=== PATIENT | female | born 1990 | race Caucasian/White ===

== ENCOUNTER 2021-02-01 01:25 | Inpatient (IN) | payer BC ==
--- NOTE | 2021-02-01 05:37 | Emergency Department Report ---
<GOLDEN GARZA - Last Filed: 02/01/21 05:38> ED Palpitations HPI - General Chief Complaint: Arrhythmia/Palpitations Stated Complaint: HEART MONITOR Time Seen by Provider: 02/01/21 05:05 Source: patient Mode of arrival: Ambulatory Limitations: No Limitations - History of Present Illness Initial Comments: Patient is a 30-year-old female who is presenting with need for cardiology consult. Patient has had a Holter monitor on for the last 2 to 3 weeks. Is placed secondary to palpitations and was found that she was in a junctional rhythm. Patient was alerted to come to the emergency department today because she was having episodes of 4+ second pauses on her rhythm strip. Patient states that those times she was feeling faint and near syncopal. She denies chest pain shortness of breath cough cold congestion fevers chills nausea vomiting at this time. Patient's carbon paste mixer operator is Dr. Gabriela Coppola - Related Data Allergies Allergy/AdvReac Type Severity Reaction Status Date / Time Sulfa (Sulfonamide Allergy Hives Verified 02/01/21 02:07 Antibiotics) ED Review of Systems Comment: All other systems reviewed and negative ED Past Medical Hx - Past Medical History Previous Medical History?: Yes Additional medical history: SVT - Surgical History Past Surgical History?: Yes Additional Surgical History: Cardiac ABLATION - Social History Smoking Status: Never Smoker Substance Use Type: None ED Physical Exam - General Limitations: No Limitations General appearance: alert, in no apparent distress - Head Head exam: Present: atraumatic, normocephalic - Eye Eye exam: Present: normal appearance - ENT ENT exam: Present: mucous membranes moist - Neck Neck exam: Present: normal inspection - Respiratory Respiratory exam: Present: normal lung sounds bilaterally. Absent: respiratory distress, wheezes, rales, rhonchi - Cardiovascular Cardiovascular Exam: Present: irregular rhythm. Absent: systolic murmur, diastolic murmur, rubs, gallop - GI/Abdominal GI/Abdominal exam: Present: soft, normal bowel sounds. Absent: distended, tenderness, guarding, rebound - Extremities Exam Extremities exam: Present: normal inspection - Back Exam Back exam: Present: normal inspection - Neurological Exam Neurological exam: Present: alert, oriented X3 - Psychiatric Psychiatric exam: Present: normal affect, normal mood - Skin Skin exam: Present: warm, dry, intact, normal color. Absent: rash ED Medical Decision Making - Radiology Data ` EKG shows a sinus bradycardia at times and a junctional rhythm at other times. Possible PACs. [place] is normal intervals normal. ED Disposition Clinical Impression: Palpitations, Abnormal Holter monitor finding, Junctional bradycardia Disposition: - OP ADMIT IP TO THIS HOSP Condition: Fair <JOHANNA ALEMAN - Last Filed: 02/01/21 07:26> ED Review of Systems ROS: Stated complaint: HEART MONITOR Other details as noted in HPI ED Course Vital Signs 02/01/21 01:57 Temperature 98.5 F Pulse Rate 51 L Respiratory 18 Rate Blood Pressure 117/65 O2 Sat by Pulse 99 Oximetry - Consultations Consultation #1: 02/01/21 07:10 I spoke with the carbon paste mixer operator on-call for [facility], Dr. Pena. Since the patient had a 4+ pause on the Holter monitor while she was awake, he recommends admission to the hospital with cardiology consultation. ED Medical Decision Making - Lab Data Result diagrams: 02/01/21 05:56 02/01/21 05:56 - Medical Decision Making Case signed out to me by overnight physician. Labs are unremarkable including CBC, metabolic panel, UDS and patient is not . Cardiology contacted and consulted. Accepted for admission by the hospitalist service and Dr. Mabry. Critical Care Time: No Critical care attestation.: If time is entered above; I have spent that time in minutes in the direct care of this critically ill patient, excluding procedure time. ED Disposition Is pt being admited?: Yes Time of Disposition: 07:25
[2021-02-01 06:38] LABS: Hematocrit 34.8 % (30.3-42.9); Hemoglobin 11.8 gm/dl (10.1-14.3); Mean Corpuscular HGB Conc 34 % (30-34); Mean Corpuscular Volume 87 fl (79-97); Platelet Count 201 K/mm3 (140-440); Red Blood Count 4.03 M/mm3 (3.65-5.03); Red Cell Distribution Width 14.2 % (13.2-15.2)
[2021-02-01 06:52] LABS: Blood Urea Nitrogen 17 mg/dL (7-17); Calcium 9.4 mg/dL (8.4-10.2); Hemolysis Index 1
[2021-02-01 06:55] LABS: BUN/Creatinine Ratio 28
[2021-02-01 07:06] LABS: Amphetamine Screen,Urine Negative; Benzodiazepines Screen,Urine Negative; Cannabinoid Screen,Urine Negative; Cocaine Screen,Urine Negative; Methadone Screen,Urine Negative; Opiate Screen,Urine Negative
--- NOTE | 2021-02-01 08:02 | XRay Report ---
CHEST 1 VIEW INDICATION / CLINICAL INFORMATION: palpitations. FINDINGS: SUPPORT DEVICES: None. HEART / MEDIASTINUM: No significant abnormality. LUNGS / PLEURA: No significant pulmonary or pleural abnormality. No pneumothorax. ADDITIONAL FINDINGS: No significant additional findings. IMPRESSION: 1. No acute findings. Signer Name: Rivas Gimenez MD Signed: 02/01/2021 7:57 AM Workstation Name: [id number]
[2021-02-01] MEDS ORDERED: NITROGLYCERIN 0.4 MG TAB SUBL SL PRN (10:40)
[2021-02-01] MEDS ORDERED: traMADol 50 MG TAB PO PRN (10:40)
[2021-02-01] MEDS ORDERED: ACETAMINOPHEN 325 MG TAB PO PRN (10:40)
[2021-02-01] MEDS ORDERED: MORPHINE 4 MG/1 ML INJ IV PRN (10:40)
[2021-02-01] MEDS ORDERED: hydrALAZINE 20 MG/1 ML INJ IV PRN (10:45)
--- NOTE | 2021-02-01 10:50 | History and Physical Report ---
History of Present Illness Date of examination: 02/01/21 Date of admission: 02/01/21 08:19 Chief complaint: Arrhythmia 4-second pause History of present illness: 30-year-old female with past medical history of SVT was brought to the hospital because of arrhythmia and 4-second pause. Patient has had a Holter monitor on for the last 2 to 3 weeks. Is placed secondary to palpitations and was found that she was in a junctional rhythm. Patient was alerted to come to the emergency department today because she was having episodes of 4+ second pauses on her rhythm strip. Patient states that those times she was feeling faint and near syncopal. She denies chest pain shortness of breath cough cold congestion fevers chills nausea vomiting at this time. Past History Past Medical History: other Medications and Allergies Allergies Allergy/AdvReac Type Severity Reaction Status Date / Time Sulfa (Sulfonamide Allergy Hives Verified 02/01/21 02:07 Antibiotics) Review of Systems Cardiovascular: palpitations Exam - Constitutional Vitals: Temp Pulse Resp BP Pulse Ox 98.5 F 50 L 16 102/56 97 02/01/21 01:57 02/01/21 10:08 02/01/21 10:08 02/01/21 10:08 02/01/21 10:08 General appearance: Present: no acute distress, well-nourished - EENT Eyes: Present: PERRL ENT: hearing intact, clear oral mucosa - Neck Neck: Present: supple, normal ROM - Respiratory Respiratory effort: normal Respiratory: bilateral: diminished - Cardiovascular Heart Sounds: Present: S1 & S2. Absent: rub, click - Extremities Extremities: pulses symmetrical, No edema Peripheral Pulses: within normal limits - Abdominal General gastrointestinal: Present: soft, non-tender, non-distended, normal bowel sounds Female genitourinary: Present: normal - Integumentary Integumentary: Present: clear, warm, dry - Musculoskeletal Musculoskeletal: gait normal, strength equal bilaterally - Psychiatric Psychiatric: appropriate mood/affect, intact judgment & insight - Neurologic Neurologic: CNII-XII intact, moves all extremities Results - Labs CBC & Chem 7: 02/01/21 05:56 02/01/21 05:56 Labs: Laboratory Last Values WBC 4.2 K/mm3 (4.5-11.0) L 02/01/21 05:56 RBC 4.03 M/mm3 (3.65-5.03) 02/01/21 05:56 Hgb 11.8 gm/dl (10.1-14.3) 02/01/21 05:56 Hct 34.8 % (30.3-42.9) 02/01/21 05:56 MCV 87 fl (79-97) 02/01/21 05:56 MCH 29 pg (28-32) 02/01/21 05:56 MCHC 34 % (30-34) 02/01/21 05:56 RDW 14.2 % (13.2-15.2) 02/01/21 05:56 Plt Count 201 K/mm3 (140-440) 02/01/21 05:56 [place] % (Auto) Pulley Man 02/01/21 05:56 Sodium 138 mmol/L (137-145) 02/01/21 05:56 Potassium 3.9 mmol/L (3.6-5.0) 02/01/21 05:56 Chloride 102.6 mmol/L (98-107) 02/01/21 05:56 Carbon Dioxide 26 mmol/L (22-30) 02/01/21 05:56 Anion Gap 13 mmol/L 02/01/21 05:56 BUN 17 mg/dL (7-17) 02/01/21 05:56 Creatinine 0.6 mg/dL (0.6-1.2) 02/01/21 05:56 Estimated GFR > 60 ml/min 02/01/21 05:56 BUN/Creatinine Ratio 28 % 02/01/21 05:56 Glucose 88 mg/dL (65-100) 02/01/21 05:56 Calcium 9.4 mg/dL (8.4-10.2) 02/01/21 05:56 Phosphorus 3.40 mg/dL (2.5-4.5) 02/01/21 05:56 Magnesium 2.00 mg/dL (1.7-2.3) 02/01/21 05:56 HCG, Qual Negative (Negative) 02/01/21 05:56 Urine Opiates Screen Negative 02/01/21 Unknown Urine Methadone Screen Negative 02/01/21 Unknown Ur Barbiturates Screen Negative 02/01/21 Unknown Ur Phencyclidine Scrn Negative 02/01/21 Unknown Ur Amphetamines Screen Negative 02/01/21 Unknown U Benzodiazepines Scrn Negative 02/01/21 Unknown Urine Cocaine Screen Negative 02/01/21 Unknown U Marijuana (THC) Screen Negative 02/01/21 Unknown Drugs of Abuse Note Disclamer 02/01/21 Unknown - Imaging and Cardiology Chest x-ray: report reviewed Assessment and Plan VTE prophylaxis?: Chemical Plan of care discussed with patient/family: Yes - Patient Problems (1) Abnormal Holter monitor finding Current Visit: Yes Status: Acute Plan to address problem: Admit the patient to the medical floor telemetry. Aspirin 81 mg p.o. daily. Nitroglycerin as needed. Lipitor 40 mg p.o. daily. We do the serial cardiac enzyme. We also do a echocardiogram. Will avoid any josh blocking medication. Will consult cardiology for further evaluation and treatment (2) Junctional bradycardia Current Visit: Yes Status: Acute Plan to address problem: Aspirin 81 mg p.o. daily. Nitroglycerin as needed. Lipitor 40 mg p.o. daily. We do the serial cardiac enzyme. We also do a echocardiogram. Will avoid any josh blocking medication. Will consult cardiology for further evaluation and treatment (3) Palpitations Current Visit: Yes Status: Acute Plan to address problem: Aspirin 81 mg p.o. daily. Nitroglycerin as needed. Lipitor 40 mg p.o. daily. We do the serial cardiac enzyme. We also do a echocardiogram. Will avoid any josh blocking medication. Will consult cardiology for further evaluation and treatment (4) SVT (supraventricular tachycardia) Current Visit: Yes Status: Acute Plan to address problem: Stable. Echocardiogram. Cardiology evaluation and treatment (5) DVT prophylaxis Current Visit: Yes Status: Acute Plan to address problem: Heparin 5000 units subcu every 8 hours for DVT prophylaxis. Protonix 40 mg p.o. daily for GI prophylaxis. Patient is a full code
[2021-02-01] MEDS ORDERED: MIDAZOLAM 2 MG/2 ML INJ ONE (11:35)
[2021-02-01] MEDS ORDERED: HEPARIN/NS 5000 UNIT/500ML 1,000 ML IR ONE (11:35)
[2021-02-01] MEDS ORDERED: HEPARIN 10,000 UNITS/10 ML VIAL ONE (11:35)
[2021-02-01] MEDS ORDERED: VERAPAMIL 5 MG/2 ML INJ ONE (11:36)
[2021-02-01] MEDS ORDERED: NITROGLYCERIN SYRINGE 0 ML ONE (11:37)
[2021-02-01 11:56] LABS: Giant Platelets Few; Platelet Estimate Consistent w Auto; RBC Morphology Normal; Total Cells Counted 100
[2021-02-01] MEDS ORDERED: SODIUM CHLORIDE 0.9% 500 ML 500 ML ONE (12:15)
[2021-02-01] MEDS ORDERED: EPINEPHrine 1 MG/10 ML SYRINGE ONE (12:18)
[2021-02-01] MEDS ORDERED: PHENYLEPHRINE/NS 1,000 MCG/10 ML SYRINGE (OR USE) IV ONE (12:18)
[2021-02-01] MEDS ORDERED: ATROPINE 0.1% (1 MG/10 ML) CARDIAC SYRINGE ONE ×2 (12:18→12:19)
[2021-02-01] MEDS ORDERED: LIDOCAINE PF 100 MG/5 ML (CARDIAC SYRINGE) IV ONE (12:18)
[2021-02-01] MEDS: fentaNYL 100 MCG/2 ML INJ ONE ×2 (13:10→13:40)
[2021-02-01] MEDS: LIDOCAINE (2%) 20 MG/1 ML VIAL 20 ML MDV INFILTRATI ONE ×2 (13:15→13:23)
[2021-02-01] MEDS: HEPARIN 5,000 UNIT/1 ML VIAL SUB-Q SCH ×2 (14:50→21:25)
[2021-02-01 15:53] LABS: Basophils % (Auto) 0.7 % (0.0-1.8); Eosinophils % (Auto) 0.6 % (0.0-4.3); Hematocrit 35.4 % (30.3-42.9); Hemoglobin 12.1 gm/dl (10.1-14.3); Lymphocytes # (Auto) 0.7 K/mm3 (1.2-5.4); Lymphocytes % (Auto) 22.3 % (13.4-35.0); Mean Corpuscular HGB Conc 34 % (30-34); Mean Corpuscular Volume 87 fl (79-97); Monocytes # (Auto) 0.4 K/mm3 (0.0-0.8); Monocytes % (Auto) 12.2 % (0.0-7.3); Platelet Count 204 K/mm3 (140-440); Red Blood Count 4.08 M/mm3 (3.65-5.03); Red Cell Distribution Width 14.2 % (13.2-15.2)
[2021-02-01 15:56] LABS: Blood Urea Nitrogen 12 mg/dL (7-17); Hemolysis Index 3
[2021-02-01] MEDS ORDERED: SODIUM CHLORIDE 0.9% 250ML 250 ML IV ONE (16:00)
[2021-02-01 16:01] LABS: BUN/Creatinine Ratio 20
[2021-02-01] MEDS: SODIUM CHLORIDE 0.9% 1000 ML 1,000 ML IV SCH (16:33)
--- NOTE | 2021-02-01 16:47 | Cardiac Catherization Report ---
DATE OF PROCEDURE: 02/01/2021 TEMPORARY VENOUS PACEMAKER PLACEMENT INDICATIONS: Please see my note from earlier today for details on indication. PROCEDURE IN DETAIL: The patient was brought to the track laborer in an urgent fashion n.p.o. the right neck was prepped and draped in sterile fashion. We used ultrasound and a micropuncture kit to successfully cannulate the right internal jugular vein. A 6-Swedish sheath was placed under fluoroscopic guidance. Next, a balloon-tipped temporary pacemaker was placed in the right ventricular apex under fluoroscopic guidance without complication. The pacemaker was tested multiple times and seemed to function normally with low threshold and outputs functioning normally. Baseline heart rate set at 50. Patient is now seems to be pacemaker dependent. There were no immediate complications. The patient tolerated the procedure well. I directly supervised the administration of moderate sedation with fentanyl and Versed from 1:15-1:50 p.m. The patient tolerated the procedure well. CONCLUSIONS: 1. Successful ultrasound-guided cannulation of right internal jugular vein with placement of 6 Swedish sheath. 2. Successful fluoroscopic-guided placement of a temporary venous pacemaker with normal functioning pacemaker parameters. RECOMMENDATIONS: Patient will be admitted to the ICU and monitored and consideration of permanent pacemaker placement. I will call her mother, Pinky to give her an update. TID: [id number] RECEIPT: [id number] ANGELA/MEERA
--- NOTE | 2021-02-01 18:35 | Consultation ---
History of Present Illness Consult date: 02/01/21 Requesting physician: CHASTITY HARE Reason for consult: other (Symptomatic Arrythmia s/p Temporary Pacemaker insertion) History of present illness: PULMONARY/CCM CONSULT NOTE (Full dictation # [id number]) Please see dictated notes for full details Past History Past Medical History: other Medications and Allergies Allergies Allergy/AdvReac Type Severity Reaction Status Date / Time Sulfa (Sulfonamide Allergy Hives Verified 02/01/21 02:07 Antibiotics) Active Meds: Active Medications Acetaminophen (Acetaminophen 325 Mg Tab) 650 mg PO Q6H PRN PRN Reason: Pain, Mild (1-3) Aspirin (Aspirin Ec 325 Mg Tab) 325 mg PO QDAY JUAN ANTONIO Atorvastatin Calcium (Atorvastatin 40 Mg Tab) 40 mg PO QHS JUAN ANTONIO Heparin Sodium (Porcine) (Heparin 5,000 Unit/1 Ml Vial) 5,000 unit SUB-Q Q8HR JUAN ANTONIO Last Admin: 02/01/21 14:50 Dose: 5,000 unit Documented by: Hydralazine HCl (Hydralazine 20 Mg/1 Ml Inj) 10 mg IV Q6H PRN PRN Reason: htn Sodium Chloride (Nacl 0.9% 1000 Ml) 1,000 mls @ 50 mls/hr IV DIRECT JUAN ANTONIO Last Admin: 02/01/21 16:33 Dose: 50 mls/hr Documented by: Morphine Sulfate (Morphine 4 Mg/1 Ml Inj) 2 mg IV Q5MIN PRN PRN Reason: Chest Pain Nitroglycerin (Nitroglycerin 0.4 Mg Tab Subl) 0.4 mg SL Q5M PRN PRN Reason: Chest Pain Pantoprazole Sodium (Pantoprazole 40 Mg Tab) 40 mg PO QDAY JUAN ANTONIO Sodium Chloride (Sodium Chloride 0.9% 10 Ml Flush Syringe) 10 ml IV PRN PRN PRN Reason: LINE FLUSH Tramadol HCl (Tramadol 50 Mg Tab) 50 mg PO Q6H PRN PRN Reason: Pain, Moderate (4-6) Physical Examination Vital signs: Vital Signs Temp Pulse Resp BP Pulse Ox 98.5 F 51 L 18 117/65 99 02/01/21 01:57 02/01/21 01:57 02/01/21 01:57 02/01/21 01:57 02/01/21 01:57 Results - Laboratory Findings CBC and BMP: 02/01/21 14:50 02/01/21 14:50 Abnormal lab findings: Abnormal Labs 02/01/21 02/01/21 05:56 14:50 WBC 4.2 L 3.2 L [place] % (Auto) 12.2 H Lymph # (Auto) 0.7 L Monocytes % (Manual) 15.0 H
--- NOTE | 2021-02-02 01:06 | Consultation ---
DATE OF CONSULTATION: 02/01/2021 PULMONARY CRITICAL CARE CONSULTATION CONSULTING PHYSICIAN: Dr. Mabry. REASON FOR CONSULTATION: Symptomatic arrhythmia, symptomatic bradycardia, needing pacemaker placement. CHIEF COMPLAINT AND HISTORY OF PRESENTING ILLNESS: The patient is a 30-year-old female with past medical history significant for multiple arrhythmias, who is actually being Holter monitored at home, came into the hospital complaining of intermittent episodes of shortness of breath and she received a call from her Holter monitor company letting her know that she was in a dangerous arrhythmia and they had noticed 4-second pauses. She was asked to come into the Emergency Room. She had been wearing the Holter monitor for the last 2 to 3 weeks, but she has a long history. She states that few years back she actually had a first ablation. In the Emergency Room, she was continued to have episodes of 4+ second pauses on her rhythm strip. Cardiology consultation was requested and a decision was made to take her to the supervisor laboratory animal facility for placement of a temporary transvenous pacemaker. Post-procedure, ICU admission was requested. When I stopped by to see her, she was resting in bed. Her rhythm was paced. She denied any chest pain. She denied nausea, vomiting, fevers or chills. She denied any new leg pain or swelling, either unilaterally or bilaterally or any suggestion of deep venous thrombosis and denied any gross or streaky hemoptysis. This really is as much of the history of presentation as I have. PAST MEDICAL HISTORY: 1. Supraventricular tachycardia. 2. Cardiomyopathy. PAST SURGICAL HISTORY: She has had cardiac ablations in the past. MEDICATIONS: She was on at the time I stopped by to see her were reviewed. Pertinent medications include the following: Tylenol 650 mg p.o. q. 6 hours p.r.n. mild pain or fever, aspirin 325 mg p.o. daily, Lipitor 40 mg p.o. at bedtime, heparin 5000 units subQ q. 8 hours., Nitrostat 0.4 mg sublingual q. 5 minutes p.r.n. chest pain, Protonix 40 mg p.o. daily, tramadol 50 mg p.o. q. 6 hours p.r.n. moderate pain. ALLERGIES: SULFA DRUGS, nature of this allergy is unknown. DIET: Thin lady. Denies acute weight loss or gain in the preceding few weeks to months. FAMILY AND SOCIAL HISTORY: Lives in the community. Describes herself as a never smoker. Denies alcohol or illicit drug use or abuse. Family history is otherwise noncontributory. REVIEW OF SYSTEMS: No loss of consciousness. She had feelings of being faint. No new onset seizures. No new onset focal weakness. Denies gross hematochezia or melena. Denies gross hematuria or dysuria. Denies any sustained palpitations. Denies polydipsia, polyuria. Denies heat or cold intolerance. Complete 13-system review of system was obtained. Pertinent positives and/or negatives as in body of history above, otherwise they are noncontributory. PHYSICAL EXAMINATION: VITAL SIGNS: At presentation in the Emergency Room, temperature was 98.5 degrees Fahrenheit, pulse of 45, respiratory rate of 18, blood pressure 117/65, O2 sats were 99%. Inspired oxygen concentration at that time was not recorded. When I stopped by to see her, O2 sats were 98% on room air, I believe on 2 liters nasal cannula. GENERAL: She is a young, thin female. Normocephalic, atraumatic. Resting in bed with normal respiratory effort at rest. HEENT: Anicteric. No conjunctival erythema. No gross jugular venous distention. Oropharynx is moist. Mallampati #II oropharynx. Grossly, there were no palpable lymph nodes in the supraclavicular or submandibular lymph node chains. LUNGS: Auscultation of both lung perez unremarkable. Good bilateral air movement. No wheezing. She had a Holter monitor over the left upper anterior chest wall. HEART: Sounds 1 and 2 are heard, regular rate and rhythm. It was a paced rhythm. ABDOMEN: Flat, soft. Bowel sounds are positive, nontender. No palpable hepatosplenomegaly. EXTREMITIES: Without overt digital clubbing or cyanosis. No pedal edema. Pedal pulses are 2+ bilaterally. NEUROLOGIC: Pupils are equal, round, about 3 mm, reactive to light. Extraocular muscle movements were intact. She moves all 4 extremities spontaneously. SKIN: Normal turgor in the areas examined without overt cellulitis or rash. Please see the wound care nurses' notes for full description of skin. PSYCHIATRIC: Mood was normal. Affect was appropriate. She had intact judgment and insight. LABORATORY DATA: From my review are as follows: White cell count 4200, hemoglobin 11.8, hematocrit 34.8, platelet count 201. No band forms of significance on the manual differential. Serum sodium was 138, potassium 3.9, chloride 103, bicarbonate 26, BUN 17, creatinine 0.6, glucose was 88. Phosphorus and magnesium within normal limits. TSH within normal limits. Free T4 within normal limits. Urine screen was negative and urine drug screen was presumptive negative. No blood cultures. A chest x-ray has been reviewed. It shows clear lungs with implanted cardiac device. No pneumothorax, no gross bony fracture. She does have cardiomegaly. ASSESSMENT: 1. Symptomatic bradycardia, status post temporary pacemaker insertion. 2. Cardiomyopathy, ejection fraction unknown. 3. Leukopenia. 4. History of supraventricular tachycardia. PLAN: We will keep her in the intensive care unit. Watch her closely while she is on the temporary pacemaker. The plan is to place the permanent pacemaker. I will defer to the rn procedure with regards to the time in. Oxygen will be given to keep O2 sats greater than or equal to about 92%. Aspiration precautions will be maintained. She is appropriately on GI and DVT prophylaxis. Flu and pneumonia vaccination will be addressed per protocol. Continued tobacco abstinence has been counseled. Thank you very much for the consult. We will follow along and make further recommendations as picture progresses/becomes clearer. She is critically ill on life-sustaining interventions including the temporary transvenous pacemaker at high risk of from cardiopulmonary system decompensation. At this time, I spent about 35 minutes of critical care time without overlap and excluding any procedural time that may be necessary. TID: [id number] RECEIPT: [id number] NOHEMI/COLIN
--- NOTE | 2021-02-02 02:15 | Consultation ---
DATE OF CONSULTATION: 02/01/2021 REFERRING PHYSICIAN: Hospitalist service. REASON FOR CONSULTATION: Advice regarding bradycardia. HISTORY OF PRESENT ILLNESS: The patient is a very pleasant 30-year-old female who normally sees Dr. Joel Coppola in our office. She has an extensive electrophysiology history. Apparently, she has a history of SVT and AFib diagnosed in 2016, underwent ablation in [place], [place] in 2016, was well controlled on flecainide and diltiazem. She has been having increasing episodes of "skipped beats," heart rates have been running in the 40s. She felt worse with flecainide, diltiazem and has not been taking flecainide and diltiazem for some time now. She was initially seen in our office for the first time on 01/15/2021. Her EKG at that time revealed junctional rhythm heart rate of 45. Rhythm strips in the office confirmed this. She had an echocardiogram done on 01/21/2021 in the office, which revealed normal LV function, no valvulopathy, no pericardial effusion. She had an event monitor placed. The office was called yesterday due to long pauses. She was sent to the Emergency Room thereafter. She was seen in the ER at [facility] this morning having faint like symptoms when she lies down. Review of her event monitor reveals pauses of 5-7 seconds, which appeared to be SA node dysfunction, SA node arrest. She denies any chest pain, no syncope, presyncope. No fevers, chills, headache. No recent illnesses or COVID exposure. PAST MEDICAL HISTORY: As aforementioned questionable history of rheumatoid arthritis. No PCP. SOCIAL HISTORY: She is a nonsmoker, nondrinker. She works in the [employer] business. ALLERGIES: SULFA AND TRAMADOL. REVIEW OF SYSTEMS: As per HPI. No medications inpatient or out. PHYSICAL EXAMINATION: VITAL SIGNS: Blood pressure is 127/80. She is afebrile. Tele as aforementioned. O2 sats 98%. GENERAL: This is a young, comfortable appearing female in no apparent distress, oriented x3. HEENT: Sclerae are anicteric. NECK: Supple, no masses. No JVD. CHEST: Clear to auscultation bilaterally. Good air movement. CARDIAC: Regular S1, S2. ABDOMEN: Soft, nontender, nondistended. Normoactive bowel sounds in upper quadrants. No mass or bruits. EXTREMITIES: No cyanosis, clubbing, edema. Good peripheral pulses. SKIN: Intact. No rashes. LABORATORY DATA: CBC and CMP are unremarkable. We will add thyroid profile as well. test is also negative. UDS is also negative. Chest x-ray also is unremarkable. ASSESSMENT AND PLAN: In summary, the patient is a 30-year-old female, who presents here with symptomatic SA node dysfunction with long pauses of 5-7 seconds in the milieu of a past history of SVT, AFib and ablation in 2016. Heart is structurally normal on recent echocardiogram. Labs are unremarkable. I have had multiple long discussions with the patient and her mother, Pinky via telephone and FaceTime. Risks, benefits and alternatives have been discussed and would like to proceed with a temporary pacemaker via the right IJ or right femoral vein today. I spent a long time discussing with the patient and family. Further plans ____ on their decision to move forward. The patient will likely require a permanent pacemaker thereafter. Thank you for this consultation. We are happy to follow along with you. TID: [id number] RECEIPT: [id number] ANGELA/SUKUMAR/DAX
[2021-02-02] MEDS: HEPARIN 5,000 UNIT/1 ML VIAL SUB-Q SCH ×3 (05:22→21:50)
[2021-02-02] MEDS: ASPIRIN EC 325 MG TAB PO SCH (09:41)
[2021-02-02] MEDS: PANTOPRAZOLE 40 MG TAB PO SCH (09:41)
[2021-02-02] MEDS: SODIUM CHLORIDE 0.9% 1000 ML 1,000 ML IV SCH (09:45)
--- NOTE | 2021-02-02 11:14 | Progress Note ---
Assessment and Plan Assessment and plan: 30-year-old female with past medical history of SVT was brought to the hospital because of arrhythmia and 4-second pause. Patient has had a Holter monitor on for the last 2 to 3 weeks. Is placed secondary to palpitations and was found that she was in a junctional rhythm. Patient was alerted to come to the emergency department today because she was having episodes of 4+ second pauses on her rhythm strip. Patient states that those times she was feeling faint and near syncopal. She denies chest pain shortness of breath cough cold congestion fevers chills nausea vomiting at this time. 02/02: Patient remains on temporal venous pacemaker due to sinus node dysfunction with pauses noted. She has a known hx of Atrial fibrillation but not on any anticoagulation at this time. Will continue ICU care as patient will benefity from Pacemaker placement planned for the am. Etiology still at question. 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 (1) Abnormal Holter monitor finding Current Visit: Yes Status: Acute Plan to address problem: Admit the patient to the medical floor telemetry. Aspirin 81 mg p.o. daily. Nitroglycerin as needed. Lipitor 40 mg p.o. daily. We do the serial cardiac enzyme. We also do a echocardiogram. Will avoid any josh blocking medication. Will consult cardiology for further evaluation and treatment (2) Junctional bradycardia Current Visit: Yes Status: Acute Plan to address problem: Aspirin 81 mg p.o. daily. Nitroglycerin as needed. Lipitor 40 mg p.o. daily. We do the serial cardiac enzyme. We also do a echocardiogram. Will avoid any josh blocking medication. Will consult cardiology for further evaluation and treatment (3) Palpitations Current Visit: Yes Status: Acute Plan to address problem: Aspirin 81 mg p.o. daily. Nitroglycerin as needed. Lipitor 40 mg p.o. daily. We do the serial cardiac enzyme. We also do a echocardiogram. Will avoid any josh blocking medication. Will consult cardiology for further evaluation and treatment (4) SVT (supraventricular tachycardia) Current Visit: Yes Status: Acute Plan to address problem: Stable. Echocardiogram. Cardiology evaluation and treatment (5) DVT prophylaxis Current Visit: Yes Status: Acute Plan to address problem: Heparin 5000 units subcu every 8 hours for DVT prophylaxis. Protonix 40 mg p.o. daily for GI prophylaxis. Patient is a full code History Interval history: Patient seen and examined, resting comfortable. No new issues reported. Hospitalist Physical - Physical exam Narrative exam: General appearance: Present: no acute distress, well-nourished - EENT Eyes: Present: PERRL ENT: hearing intact, clear oral mucosa - Neck Neck: Present: supple, normal ROM - Respiratory Respiratory effort: normal Respiratory: bilateral: diminished - Cardiovascular Heart Sounds: Present: Bradycardia, temporal Pacemaker noted, - Extremities Extremities: pulses symmetrical, No edema Peripheral Pulses: within normal limits - Abdominal General gastrointestinal: Present: soft, non-tender, non-distended, normal bowel sounds Female genitourinary: Present: normal - Integumentary Integumentary: Present: clear, warm, dry - Musculoskeletal Musculoskeletal: gait normal, strength equal bilaterally - Psychiatric Psychiatric: appropriate mood/affect, intact judgment & insight - Neurologic Neurologic: CNII-XII intact, moves all extremities - Constitutional Vitals: Temp Pulse Resp BP Pulse Ox 99.2 F 61 15 108/63 97 02/02/21 07:20 02/02/21 09:00 02/02/21 09:00 02/02/21 09:00 02/02/21 09:00 General appearance: Present: no acute distress, well-nourished HEART Score - HEART Score Troponin: Troponin T < 0.010 ng/mL (0.00-0.029) 02/01/21 14:50 Results - Labs CBC & Chem 7: 02/01/21 14:50 02/01/21 14:50 Labs: Laboratory Last Values WBC 3.2 K/mm3 (4.5-11.0) L 02/01/21 14:50 RBC 4.08 M/mm3 (3.65-5.03) 02/01/21 14:50 Hgb 12.1 gm/dl (10.1-14.3) 02/01/21 14:50 Hct 35.4 % (30.3-42.9) 02/01/21 14:50 MCV 87 fl (79-97) 02/01/21 14:50 MCH 30 pg (28-32) 02/01/21 14:50 MCHC 34 % (30-34) 02/01/21 14:50 RDW 14.2 % (13.2-15.2) 02/01/21 14:50 Plt Count 204 K/mm3 (140-440) 02/01/21 14:50 Lymph % (Auto) 22.3 % (13.4-35.0) 02/01/21 14:50 [place] % (Auto) 12.2 % (0.0-7.3) H 02/01/21 14:50 Eos % (Auto) 0.6 % (0.0-4.3) 02/01/21 14:50 Baso % (Auto) 0.7 % (0.0-1.8) 02/01/21 14:50 Lymph # (Auto) 0.7 K/mm3 (1.2-5.4) L 02/01/21 14:50 [place] # (Auto) 0.4 K/mm3 (0.0-0.8) 02/01/21 14:50 Eos # (Auto) 0.0 K/mm3 (0.0-0.4) 02/01/21 14:50 Baso # (Auto) 0.0 K/mm3 (0.0-0.1) 02/01/21 14:50 Add Manual Diff Complete 02/01/21 05:56 Total Counted 100 02/01/21 05:56 Seg Neutrophils % 64.2 % (40.0-70.0) 02/01/21 14:50 Seg Neuts % (Manual) 51.0 % (40.0-70.0) 02/01/21 05:56 Lymphocytes % (Manual) 30.0 % (13.4-35.0) 02/01/21 05:56 Reactive Lymphs % (Man) 1.0 % 02/01/21 05:56 Monocytes % (Manual) 15.0 % (0.0-7.3) H 02/01/21 05:56 Eosinophils % (Manual) 2.0 % (0.0-4.3) 02/01/21 05:56 Metamyelocytes % 1.0 % 02/01/21 05:56 Nucleated RBC % Not Reportable 02/01/21 05:56 Seg Neutrophils # 2.1 K/mm3 (1.8-7.7) 02/01/21 14:50 Seg Neutrophils # Man 2.1 K/mm3 (1.8-7.7) 02/01/21 05:56 Band Neutrophils # 0.0 K/mm3 02/01/21 05:56 Lymphocytes # (Manual) 1.3 K/mm3 (1.2-5.4) 02/01/21 05:56 Abs React Lymphs (Man) 0.0 K/mm3 02/01/21 05:56 Monocytes # (Manual) 0.6 K/mm3 (0.0-0.8) 02/01/21 05:56 Eosinophils # (Manual) 0.1 K/mm3 (0.0-0.4) 02/01/21 05:56 Basophils # (Manual) 0.0 K/mm3 (0.0-0.1) 02/01/21 05:56 Metamyelocytes # 0.0 K/mm3 02/01/21 05:56 Myelocytes # 0.0 K/mm3 02/01/21 05:56 Promyelocytes # 0.0 K/mm3 02/01/21 05:56 Blast Cells # 0.0 K/mm3 02/01/21 05:56 WBC Morphology Not Reportable 02/01/21 05:56 Hypersegmented Neuts Not Reportable 02/01/21 05:56 Hyposegmented Neuts Not Reportable 02/01/21 05:56 Hypogranular Neuts Not Reportable 02/01/21 05:56 Smudge Cells Not Reportable 02/01/21 05:56 Toxic Granulation Not Reportable 02/01/21 05:56 Toxic Vacuolation Not Reportable 02/01/21 05:56 Dohle Bodies Not Reportable 02/01/21 05:56 Pelger-Huet Anomaly Not Reportable 02/01/21 05:56 Andrea Rods Not Reportable 02/01/21 05:56 Platelet Estimate Consistent w auto 02/01/21 05:56 Clumped Platelets Not Reportable 02/01/21 05:56 Plt Clumps, EDTA Not Reportable 02/01/21 05:56 Large Platelets Not Reportable 02/01/21 05:56 Giant Platelets Few 02/01/21 05:56 Platelet Satelliting Not Reportable 02/01/21 05:56 Plt Morphology Comment Not Reportable 02/01/21 05:56 RBC Morphology Normal 02/01/21 05:56 Dimorphic RBCs Not Reportable 02/01/21 05:56 Polychromasia Not Reportable 02/01/21 05:56 Hypochromasia Not Reportable 02/01/21 05:56 Poikilocytosis Not Reportable 02/01/21 05:56 Anisocytosis Not Reportable 02/01/21 05:56 Microcytosis Not Reportable 02/01/21 05:56 Macrocytosis Not Reportable 02/01/21 05:56 Spherocytes Not Reportable 02/01/21 05:56 Pappenheimer Bodies Not Reportable 02/01/21 05:56 Sickle Cells Not Reportable 02/01/21 05:56 Target Cells Not Reportable 02/01/21 05:56 Tear Drop Cells Not Reportable 02/01/21 05:56 Ovalocytes Not Reportable 02/01/21 05:56 Helmet Cells Not Reportable 02/01/21 05:56 Rodriguez-Norris Bodies Not Reportable 02/01/21 05:56 Orange Rings Not Reportable 02/01/21 05:56 Kaiden Cells Not Reportable 02/01/21 05:56 Bite Cells Not Reportable 02/01/21 05:56 Crenated Cell Not Reportable 02/01/21 05:56 Elliptocytes Not Reportable 02/01/21 05:56 Acanthocytes (Spur) Not Reportable 02/01/21 05:56 Rouleaux Not Reportable 02/01/21 05:56 Hemoglobin C Crystals Not Reportable 02/01/21 05:56 Schistocytes Not Reportable 02/01/21 05:56 Malaria parasites Not Reportable 02/01/21 05:56 Kevin Bodies Not Reportable 02/01/21 05:56 Hem Pathologist Commnt No 02/01/21 05:56 Sodium 140 mmol/L (137-145) 02/01/21 14:50 Potassium 3.8 mmol/L (3.6-5.0) 02/01/21 14:50 Chloride 105.8 mmol/L (98-107) 02/01/21 14:50 Carbon Dioxide 23 mmol/L (22-30) 02/01/21 14:50 Anion Gap 15 mmol/L 02/01/21 14:50 BUN 12 mg/dL (7-17) 02/01/21 14:50 Creatinine 0.6 mg/dL (0.6-1.2) 02/01/21 14:50 Estimated GFR > 60 ml/min 02/01/21 14:50 BUN/Creatinine Ratio 20 % 02/01/21 14:50 Glucose 88 mg/dL (65-100) 02/01/21 14:50 Calcium 9.0 mg/dL (8.4-10.2) 02/01/21 14:50 Phosphorus 3.40 mg/dL (2.5-4.5) 02/01/21 05:56 Magnesium 2.00 mg/dL (1.7-2.3) 02/01/21 05:56 Troponin T < 0.010 ng/mL (0.00-0.029) 02/01/21 14:50 TSH 1.620 mlU/mL (0.270-4.200) 02/01/21 14:50 Free T4 1.14 ng/dL (0.76-1.46) 02/01/21 14:50 HCG, Qual Negative (Negative) 02/01/21 05:56 Urine Opiates Screen Negative 02/01/21 Unknown Urine Methadone Screen Negative 02/01/21 Unknown Ur Barbiturates Screen Negative 02/01/21 Unknown Ur Phencyclidine Scrn Negative 02/01/21 Unknown Ur Amphetamines Screen Negative 02/01/21 Unknown U Benzodiazepines Scrn Negative 02/01/21 Unknown Urine Cocaine Screen Negative 02/01/21 Unknown U Marijuana (THC) Screen Negative 02/01/21 Unknown Drugs of Abuse Note Disclamer 02/01/21 Unknown Spencer/IV: Voiding Method Toilet Active Medications - Current Medications Current Medications: Generic Name Dose Route Start Last Admin Trade Name Freq PRN Reason Stop Dose Admin Acetaminophen 650 mg 02/01/21 10:40 Acetaminophen 325 Mg Tab PO Q6H PRN Pain, Mild (1-3) Aspirin 325 mg 02/02/21 10:00 02/02/21 09:41 Aspirin Ec 325 Mg Tab PO 325 mg QDAY JUAN ANTONIO Administration Atorvastatin Calcium 40 mg 02/01/21 22:00 02/01/21 21:26 Atorvastatin 40 Mg Tab PO 40 mg QHS JUAN ANTONIO Administration Heparin Sodium (Porcine) 5,000 unit 02/01/21 14:00 02/02/21 05:22 Heparin 5,000 Unit/1 Ml Vial SUB-Q Not Given Q8HR JUAN ANTONIO Hydralazine HCl 10 mg 02/01/21 10:45 Hydralazine 20 Mg/1 Ml Inj IV Q6H PRN htn Sodium Chloride 1,000 mls @ 50 mls/hr 02/01/21 15:00 02/02/21 09:45 Nacl 0.9% 1000 Ml IV 50 mls/hr DIRECT JUAN ANTONIO Administration Morphine Sulfate 2 mg 02/01/21 10:40 Morphine 4 Mg/1 Ml Inj IV Q5MIN PRN Chest Pain Nitroglycerin 0.4 mg 02/01/21 10:40 Nitroglycerin 0.4 Mg Tab Subl SL Q5M PRN Chest Pain Pantoprazole Sodium 40 mg 02/02/21 10:00 02/02/21 09:41 Pantoprazole 40 Mg Tab PO 40 mg QDAY JUAN ANTONIO Administration Sodium Chloride 10 ml 02/01/21 10:40 Sodium Chloride 0.9% 10 Ml Flush Syringe IV PRN PRN LINE FLUSH Tramadol HCl 50 mg 02/01/21 10:40 Tramadol 50 Mg Tab PO Q6H PRN Pain, Moderate (4-6)
--- NOTE | 2021-02-02 12:03 | Progress Note ---
Assessment and Plan 30-year-old female: 1. Symptomatic severe sinus node dysfunction with documented recurrent 6 to 7-second pauses at rest. * Status post temporary venous pacemaker placement via the right IJ -functioning normally * Patient seems to be mostly pacemaker dependent especially at rest * Etiology of sinus node dysfunction is entirely unclear * Thyroid panel and electrolytes are normal 2. History of atrial fibrillation and SVT * Status post SVT ablation in 2016 in [place] 3. Questionable history of rheumatoid arthritis N.p.o. after midnight for possible pacemaker insertion. Electrophysiology consultation in a.m. - Patient Problems (1) Sinus arrest Current Visit: Yes Status: Acute (2) Abnormal Holter monitor finding Current Visit: Yes Status: Acute (3) Junctional bradycardia Current Visit: Yes Status: Acute (4) Palpitations Current Visit: Yes Status: Acute (5) SVT (supraventricular tachycardia) Current Visit: Yes Status: Acute Subjective Date of service: 02/02/21 Interval history: She feels a lot better today. No acute events overnight. Objective Vital Signs Temp Pulse Pulse Resp BP Pulse Ox 02/02/21 11:47 99.0 F 02/02/21 09:00 61 15 108/63 97 02/02/21 08:00 50 L 12 104/59 95 02/02/21 07:20 99.2 F 02/02/21 07:00 50 L 10 L 93/57 97 02/02/21 06:00 50 L 12 112/59 97 02/02/21 05:00 50 L 9 L 111/63 98 02/02/21 04:00 98.9 F 50 L 13 107/64 98 02/02/21 03:00 50 L 50 L 12 100/49 93 02/02/21 02:00 50 L 13 105/53 92 02/02/21 01:00 50 L 12 101/65 97 02/02/21 00:01 99.0 F 02/02/21 00:00 50 L 11 L 110/62 02/01/21 23:51 50 L 02/01/21 23:08 54 L 11 L 110/62 95 02/01/21 23:00 57 L 12 110/62 96 02/01/21 22:00 56 L 12 104/59 94 02/01/21 21:00 57 L 12 94/51 95 02/01/21 20:00 68 11 L 105/59 99 02/01/21 19:56 99.1 F 02/01/21 19:00 54 L 13 114/57 99 02/01/21 18:00 51 L 13 114/57 98 02/01/21 17:00 56 L 13 104/76 02/01/21 16:00 50 L 10 L 116/76 02/01/21 15:50 52 L 13 112/54 99 02/01/21 15:40 56 L 12 112/54 98 02/01/21 15:30 56 L 10 L 112/54 99 02/01/21 15:20 56 L 11 L 112/54 83 L 02/01/21 15:10 56 L 10 L 112/54 100 02/01/21 15:00 98 F 56 L 13 90/60 02/01/21 14:50 57 L 12 90/60 90 02/01/21 14:40 55 L 10 L 90/60 97 02/01/21 14:34 45 L 12 02/01/21 12:20 49 L 11 L 104/52 93 02/01/21 12:10 55 L 13 104/52 99 02/01/21 12:00 60 10 L 126/85 93 - Labs and Meds CBC 02/01/21 Range/Units 14:50 WBC 3.2 L (4.5-11.0) K/mm3 RBC 4.08 (3.65-5.03) M/mm3 Hgb 12.1 (10.1-14.3) gm/dl Hct 35.4 (30.3-42.9) % Plt Count 204 (140-440) K/mm3 Lymph # (Auto) 0.7 L (1.2-5.4) K/mm3 [place] # (Auto) 0.4 (0.0-0.8) K/mm3 Eos # (Auto) 0.0 (0.0-0.4) K/mm3 Baso # (Auto) 0.0 (0.0-0.1) K/mm3 Comprehensive Metabolic Panel 02/01/21 Range/Units 14:50 Sodium 140 (137-145) mmol/L Potassium 3.8 (3.6-5.0) mmol/L Chloride 105.8 (98-107) mmol/L Carbon Dioxide 23 (22-30) mmol/L BUN 12 (7-17) mg/dL Creatinine 0.6 (0.6-1.2) mg/dL Glucose 88 (65-100) mg/dL Calcium 9.0 (8.4-10.2) mg/dL
--- NOTE | 2021-02-02 13:15 | Electrocardiograph Report ---
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
--- NOTE | 2021-02-02 13:24 | Electrocardiograph Report ---
[facility] Test Date: 2021-02-02 Test Time: 09:42:16 Pat Name: ELLE YATES Department: Room: A260 1 Gender: F Supervisor Stitching Department: ANDREW : 1990 Requested By: CHASTITY HARE Order Number: [id number] Reading MD: Estuardo Deleon Measurements Intervals [place] Rate: 63 P: -73 MS: 199 QRS: 58 QRSD: 136 T: 49 QT: 486 QTc: 497 Interpretive Statements Intermittent Ventricular-paced complexes Nonspecific intraventricular conduction delay Prolonged QT interval Compared to ECG 02/01/2021 02:03:29 Prolonged QT interval now present Sinus bradycardia no longer present Atrial premature complex(es) no longer present Electronically Signed On 02-02-2021 13:23:54 EDT by Estuardo Deleon
--- NOTE | 2021-02-02 16:40 | Progress Note ---
Assessment and Plan Symptomatic bradycardia s/p PCM insertion. Cardiomyopathy Leukopenia H/O supraventricular tachycardia - prn supplemental oxygen to keep O2 sats > 90% - prn bronchodilators (NALINI) with pulm hygiene per RT - PPM per cardiology - avoid nephrotoxins, renally dose all medications - mobility protocols to prevent pressure ulcers - PT/OT as tolerated - accuchecks with glycemic control per SSI for target blood glucose < 180 mg/dL - tobacco abstinence strongly counseled at the bedside - home oxygen evaluation at discharge - GI & VTE prophylaxis - Flu & pneumovax per protocol - prn analgesia per pain score - continue other care per attending / other consultants ... continue to watch in ICU .... re-evaluate in am & prn I have spent ( >35 ) minutes with the patient w/ >50% of the time spent counseling and/or coordinating care for this patient. Counseling topics and/or how time was spent coordinating patient's care is outlined in the impression and plan above. Subjective Date of service: 02/02/21 Principal diagnosis: Symptomatic bradycardia s/p PCM; CMOP; Leukopenia; H/O SVT Interval history: Patient is seen today for: Symptomatic bradycardia s/p PCM insertion; Cardiomyopathy; Leukopenia; H/O supraventricular tachycardia Seen and examined at bedside; 24hour events reviewed; nursing and respiratory care staff consulted; no adverse overnight events reported to me; resting peacefully in bed; no new issues today; no chest pain and no near syncope / lightheadedness Objective Vital Signs - 12hr 02/02/21 02/02/21 02/02/21 05:00 06:00 07:00 Temperature Pulse Rate 50 L 50 L 50 L Pulse Rate [ From Monitor] Respiratory 9 L 12 10 L Rate Blood Pressure 111/63 112/59 93/57 O2 Sat by Pulse 98 97 97 Oximetry 02/02/21 02/02/21 02/02/21 07:20 08:00 09:00 Temperature 99.2 F Pulse Rate 50 L 61 Pulse Rate [ From Monitor] Respiratory 12 15 Rate Blood Pressure 104/59 108/63 O2 Sat by Pulse 95 97 Oximetry 02/02/21 02/02/21 02/02/21 10:00 11:00 11:47 Temperature 99.0 F Pulse Rate 58 L 54 L Pulse Rate [ 50 L From Monitor] Respiratory 14 13 Rate Blood Pressure 108/63 109/63 O2 Sat by Pulse 100 Oximetry 02/02/21 02/02/21 02/02/21 12:00 13:00 16:00 Temperature 98.2 F Pulse Rate 55 L 50 L Pulse Rate [ From Monitor] Respiratory 14 9 L Rate Blood Pressure 114/66 117/81 O2 Sat by Pulse Oximetry Constitutional: no acute distress Eyes: non-icteric ENT: oropharynx moist Neck: supple, no lymphadenopathy, no JVD Effort: normal Ascultation: Bilateral: clear Percussion: Bilateral: not dull Cardiovascular: regular rate and rhythm, other (paced) Gastrointestinal: normoactive bowel sounds, soft, non-tender, non-distended Integumentary: normal Extremities: no cyanosis, no edema, pink and warm, pulses normal Neurologic: normal mental status, non-focal exam, pupils equal and round, motor strength normal and Psychiatric: mood appropriate, affect normal CBC and BMP: 02/04/21 04:44 02/04/21 04:44 Abnormal lab findings: Abnormal Labs 02/01/21 02/01/21 05:56 14:50 WBC 4.2 L 3.2 L [place] % (Auto) 12.2 H Lymph # (Auto) 0.7 L Monocytes % (Manual) 15.0 H Allied health notes reviewed: nursing
[2021-02-03] MEDS: HEPARIN 5,000 UNIT/1 ML VIAL SUB-Q SCH ×3 (05:30→21:40)
[2021-02-03] MEDS: SODIUM CHLORIDE 0.9% 1000 ML 1,000 ML IV SCH (07:16)
--- NOTE | 2021-02-03 07:59 | Progress Note ---
Assessment and Plan Symptomatic bradycardia s/p transvenous pacemaker via RIJ Symptomatic severe sinus node dysfunction with documented recurrent 6 to 7-second pauses at rest. History of atrial fibrillation and SVT S/p SVT ablation in 2016 in [place] Leukopenia Has a temporary pace maker, plan if for PPM placement tomorrow NPO after midnight, gentle IVF after midnight. Accuchecks with glycemic control per SSI for target blood glucose < 180 mg/dL Prn analgesia per pain score Continue to monitor in ICU Subjective Date of service: 02/03/21 Principal diagnosis: Symptomatic bradycardia s/p PCM; CMOP; Leukopenia; H/O SVT Interval history: Patient is seen today for: Symptomatic bradycardia s/p PCM insertion; Cardiomyopathy; Leukopenia; H/O supraventricular tachycardia Seen and examined at bedside; 24hour events reviewed; nursing and respiratory care staff consulted; no adverse overnight events reported to me; resting peacefully in bed; no new issues today; no chest pain and no near syncope / ligh theadedness Objective Vital Signs - 12hr 02/02/21 02/02/21 02/02/21 20:00 20:06 21:00 Temperature 98.7 F Pulse Rate 60 50 L Pulse Rate [ 49 L From Monitor] Respiratory 14 14 Rate Blood Pressure 127/67 119/58 O2 Sat by Pulse 96 96 96 Oximetry 02/02/21 02/02/21 02/02/21 22:00 23:00 23:44 Temperature Pulse Rate 54 L 55 L 55 L Pulse Rate [ From Monitor] Respiratory 13 14 12 Rate Blood Pressure 119/58 120/63 121/56 O2 Sat by Pulse 96 95 97 Oximetry 02/03/21 02/03/21 02/03/21 00:00 00:04 01:00 Temperature 98.9 F Pulse Rate 50 L 50 L 52 L Pulse Rate [ 50 L From Monitor] Respiratory 10 L 12 13 Rate Blood Pressure 114/47 114/47 107/47 O2 Sat by Pulse 96 95 Oximetry 02/03/21 02/03/21 02/03/21 02:00 03:00 03:52 Temperature 98.0 F Pulse Rate 50 L 50 L Pulse Rate [ From Monitor] Respiratory 15 11 L Rate Blood Pressure 106/57 96/51 O2 Sat by Pulse 96 94 Oximetry 02/03/21 02/03/21 02/03/21 04:00 05:00 06:00 Temperature Pulse Rate 50 L 50 L 50 L Pulse Rate [ 50 L From Monitor] Respiratory 13 14 13 Rate Blood Pressure 103/55 101/53 97/56 O2 Sat by Pulse 96 96 100 Oximetry 02/03/21 07:00 Temperature 99.1 F Pulse Rate Pulse Rate [ From Monitor] Respiratory Rate Blood Pressure O2 Sat by Pulse Oximetry Constitutional: no acute distress, alert Eyes: non-icteric ENT: oropharynx moist Neck: supple, no lymphadenopathy, no JVD Effort: normal Ascultation: Bilateral: clear Percussion: Bilateral: not dull Cardiovascular: regular rate and rhythm, other (paced) Gastrointestinal: normoactive bowel sounds, soft, non-tender, non-distended Integumentary: normal Extremities: no cyanosis, no edema, pink and warm, pulses normal Neurologic: normal mental status, non-focal exam, pupils equal and round, motor strength normal and Psychiatric: mood appropriate, affect normal CBC and BMP: 02/04/21 04:44 02/04/21 04:44 Abnormal lab findings: Abnormal Labs 02/01/21 02/01/21 05:56 14:50 WBC 4.2 L 3.2 L [place] % (Auto) 12.2 H Lymph # (Auto) 0.7 L Monocytes % (Manual) 15.0 H Allied health notes reviewed: nursing
[2021-02-03] MEDS: PANTOPRAZOLE 40 MG TAB PO SCH (10:08)
[2021-02-03] MEDS: ASPIRIN EC 325 MG TAB PO SCH (10:08)
--- NOTE | 2021-02-03 13:37 | Progress Note ---
Assessment and Plan Sick Sinus Syndrome in setting of hx of Afib s/p ablation * Temporary pacemaker placed through right IJ is functioning normally. Patient continues to be dependent upon pacemaker, primarily in paced rhythm. Continue to monitor on telemetry. * Electrophysiology has been consulted. Planned permanent PPM scheduled for tomorrow. Patient should be n.p.o. after midnight. DVT prophylaxis * Heparin SQ Schedule PPM in AM. NPO after midnight This patient was seen in conjunction with Dr Luna who agrees with assessment and plan of care - Patient Problems (1) Sick sinus syndrome due to SA node dysfunction Current Visit: Yes Status: Acute (2) History of radiofrequency ablation (RFA) procedure for cardiac arrhythmia Current Visit: Yes Status: Chronic (3) History of atrial fibrillation Current Visit: Yes Status: Chronic (4) DVT prophylaxis Current Visit: Yes Status: Acute Subjective Date of service: 02/03/21 Principal diagnosis: Symptomatic bradycardia s/p PCM; CMOP; Leukopenia; H/O SVT Interval history: Patient resting comfortably in bed. No shortness of breath or chest pain overnight Telemetry reviewed: Paced rhythm heart rate 50. Paroxysmal SVT 120s. Objective Last Vital Signs Temp 99.1 F 02/03/21 07:00 Pulse 50 L 02/03/21 08:00 Resp 12 02/03/21 08:00 BP 97/45 02/03/21 08:00 Pulse Ox 96 02/03/21 08:00 - Physical Examination General: Appears Well HEENT: Positive: PERRL, Normocephaly, Mucus Membranes Moist Neck: Positive: neck supple, trachea midline Cardiac: Positive: Reg Rate and Rhythm, S1/S2 Lungs: Positive: Normal Exam, Normal Breath Sounds Neuro: Positive: Grossly Intact Abdomen: Positive: Unremarkable, Soft Skin: Negative: Rash, Wound Musculoskeletal: No Pain Extremities: Present: upper extr. pulses, lower extr. pulses. Absent: edema - Imaging and Cardiology EKG: report reviewed, image reviewed Cardiac cath: report reviewed ([facility] normal coronary arteries) - Allied health notes Allied health notes reviewed: nursing
--- NOTE | 2021-02-03 14:42 | Progress Note ---
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 Sick sinus syndrome -History of SVT/atrial fibrillation s/p ablation in 2016 in [place] -S/p temporary pacemaker placement through right IJ -Cardiology consulted, appreciate recommendation -02/01 TSH 1. 6, free T4 1.14, T3 pending, troponin less than 0.010 -EP consulted per cardiology -Planned PPM on 02/04 -Aspirin, Lipitor, as needed Nitrostat -N.p.o. 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 Patient was admitted to the hospitalist service with consults to cardiology and CCM. 02/02: Patient remains on temporal venous pacemaker due to sinus node dysfunction with pauses noted. She has a known hx of Atrial fibrillation but not on any anticoagulation at this time. Will continue ICU care as patient will benefity from Pacemaker placement planned for the am. Etiology still at question. Will also discuss with Cards about prison anticoagulation. 02/03: At the time of examination patient states that she has not had any chest pain or acute distress. Temporary pacemaker in place. No acute events reported overnight. Updated father and patient at bedside today Hospitalist Physical - Constitutional Vitals: Temp Pulse Resp BP Pulse Ox 98.0 F 50 L 12 97/45 96 02/03/21 11:00 02/03/21 08:00 02/03/21 08:00 02/03/21 08:00 02/03/21 08:00 General appearance: Present: no acute distress, well-nourished - EENT Eyes: Present: PERRL, EOM intact ENT: hearing intact, clear oral mucosa, dentition normal - Neck Neck: Present: normal ROM - Respiratory Respiratory effort: normal Respiratory: bilateral: CTA - Cardiovascular Rhythm: regular Heart Sounds: Present: S1 & S2. Absent: systolic murmur, diastolic murmur - Extremities Extremities: no ischemia, pulses intact, pulses symmetrical, No edema, normal temperature, normal color Extremity abnormal: other (limited ROM d/t hx of olliers disease) Peripheral Pulses: within normal limits - Abdominal General gastrointestinal: soft, non-tender, non-distended, normal bowel sounds - Integumentary Integumentary: Present: warm, dry - Psychiatric Psychiatric: appropriate mood/affect, cooperative - Neurologic Neurologic: no CNII-XII intact, focal deficits, moves all extremities - Allied Health Allied health notes reviewed: nursing, social work HEART Score - HEART Score Troponin: Troponin T < 0.010 ng/mL (0.00-0.029) 02/01/21 14:50 Results - Labs CBC & Chem 7: 02/01/21 14:50 02/01/21 14:50 Labs: Laboratory Last Values WBC 3.2 K/mm3 (4.5-11.0) L 02/01/21 14:50 RBC 4.08 M/mm3 (3.65-5.03) 02/01/21 14:50 Hgb 12.1 gm/dl (10.1-14.3) 02/01/21 14:50 Hct 35.4 % (30.3-42.9) 02/01/21 14:50 MCV 87 fl (79-97) 02/01/21 14:50 MCH 30 pg (28-32) 02/01/21 14:50 MCHC 34 % (30-34) 02/01/21 14:50 RDW 14.2 % (13.2-15.2) 02/01/21 14:50 Plt Count 204 K/mm3 (140-440) 02/01/21 14:50 Lymph % (Auto) 22.3 % (13.4-35.0) 02/01/21 14:50 Power % (Auto) 12.2 % (0.0-7.3) H 02/01/21 14:50 Eos % (Auto) 0.6 % (0.0-4.3) 02/01/21 14:50 Baso % (Auto) 0.7 % (0.0-1.8) 02/01/21 14:50 Lymph # (Auto) 0.7 K/mm3 (1.2-5.4) L 02/01/21 14:50 Power # (Auto) 0.4 K/mm3 (0.0-0.8) 02/01/21 14:50 Eos # (Auto) 0.0 K/mm3 (0.0-0.4) 02/01/21 14:50 Baso # (Auto) 0.0 K/mm3 (0.0-0.1) 02/01/21 14:50 Add Manual Diff Complete 02/01/21 05:56 Total Counted 100 02/01/21 05:56 Seg Neutrophils % 64.2 % (40.0-70.0) 02/01/21 14:50 Seg Neuts % (Manual) 51.0 % (40.0-70.0) 02/01/21 05:56 Lymphocytes % (Manual) 30.0 % (13.4-35.0) 02/01/21 05:56 Reactive Lymphs % (Man) 1.0 % 02/01/21 05:56 Monocytes % (Manual) 15.0 % (0.0-7.3) H 02/01/21 05:56 Eosinophils % (Manual) 2.0 % (0.0-4.3) 02/01/21 05:56 Metamyelocytes % 1.0 % 02/01/21 05:56 Nucleated RBC % Not Reportable 02/01/21 05:56 Seg Neutrophils # 2.1 K/mm3 (1.8-7.7) 02/01/21 14:50 Seg Neutrophils # Man 2.1 K/mm3 (1.8-7.7) 02/01/21 05:56 Band Neutrophils # 0.0 K/mm3 02/01/21 05:56 Lymphocytes # (Manual) 1.3 K/mm3 (1.2-5.4) 02/01/21 05:56 Abs React Lymphs (Man) 0.0 K/mm3 02/01/21 05:56 Monocytes # (Manual) 0.6 K/mm3 (0.0-0.8) 02/01/21 05:56 Eosinophils # (Manual) 0.1 K/mm3 (0.0-0.4) 02/01/21 05:56 Basophils # (Manual) 0.0 K/mm3 (0.0-0.1) 02/01/21 05:56 Metamyelocytes # 0.0 K/mm3 02/01/21 05:56 Myelocytes # 0.0 K/mm3 02/01/21 05:56 Promyelocytes # 0.0 K/mm3 02/01/21 05:56 Blast Cells # 0.0 K/mm3 02/01/21 05:56 WBC Morphology Not Reportable 02/01/21 05:56 Hypersegmented Neuts Not Reportable 02/01/21 05:56 Hyposegmented Neuts Not Reportable 02/01/21 05:56 Hypogranular Neuts Not Reportable 02/01/21 05:56 Smudge Cells Not Reportable 02/01/21 05:56 Toxic Granulation Not Reportable 02/01/21 05:56 Toxic Vacuolation Not Reportable 02/01/21 05:56 Dohle Bodies Not Reportable 02/01/21 05:56 Pelger-Huet Anomaly Not Reportable 02/01/21 05:56 Andrea Rods Not Reportable 02/01/21 05:56 Platelet Estimate Consistent w auto 02/01/21 05:56 Clumped Platelets Not Reportable 02/01/21 05:56 Plt Clumps, EDTA Not Reportable 02/01/21 05:56 Large Platelets Not Reportable 02/01/21 05:56 Giant Platelets Few 02/01/21 05:56 Platelet Satelliting Not Reportable 02/01/21 05:56 Plt Morphology Comment Not Reportable 02/01/21 05:56 RBC Morphology Normal 02/01/21 05:56 Dimorphic RBCs Not Reportable 02/01/21 05:56 Polychromasia Not Reportable 02/01/21 05:56 Hypochromasia Not Reportable 02/01/21 05:56 Poikilocytosis Not Reportable 02/01/21 05:56 Anisocytosis Not Reportable 02/01/21 05:56 Microcytosis Not Reportable 02/01/21 05:56 Macrocytosis Not Reportable 02/01/21 05:56 Spherocytes Not Reportable 02/01/21 05:56 Pappenheimer Bodies Not Reportable 02/01/21 05:56 Sickle Cells Not Reportable 02/01/21 05:56 Target Cells Not Reportable 02/01/21 05:56 Tear Drop Cells Not Reportable 02/01/21 05:56 Ovalocytes Not Reportable 02/01/21 05:56 Helmet Cells Not Reportable 02/01/21 05:56 [place] Bodies Not Reportable 02/01/21 05:56 [place] Rings Not Reportable 02/01/21 05:56 [place] Cells Not Reportable 02/01/21 05:56 Bite Cells Not Reportable 02/01/21 05:56 Crenated Cell Not Reportable 02/01/21 05:56 Elliptocytes Not Reportable 02/01/21 05:56 Acanthocytes (Spur) Not Reportable 02/01/21 05:56 Rouleaux Not Reportable 02/01/21 05:56 Hemoglobin C Crystals Not Reportable 02/01/21 05:56 Schistocytes Not Reportable 02/01/21 05:56 Malaria parasites Not Reportable 02/01/21 05:56 Kevin Bodies Not Reportable 02/01/21 05:56 Hem Pathologist Commnt No 02/01/21 05:56 Sodium 140 mmol/L (137-145) 02/01/21 14:50 Potassium 3.8 mmol/L (3.6-5.0) 02/01/21 14:50 Chloride 105.8 mmol/L (98-107) 02/01/21 14:50 Carbon Dioxide 23 mmol/L (22-30) 02/01/21 14:50 Anion Gap 15 mmol/L 02/01/21 14:50 BUN 12 mg/dL (7-17) 02/01/21 14:50 Creatinine 0.6 mg/dL (0.6-1.2) 02/01/21 14:50 Estimated GFR > 60 ml/min 02/01/21 14:50 BUN/Creatinine Ratio 20 % 02/01/21 14:50 Glucose 88 mg/dL (65-100) 02/01/21 14:50 Calcium 9.0 mg/dL (8.4-10.2) 02/01/21 14:50 Phosphorus 3.40 mg/dL (2.5-4.5) 02/01/21 05:56 Magnesium 2.00 mg/dL (1.7-2.3) 02/01/21 05:56 Troponin T < 0.010 ng/mL (0.00-0.029) 02/01/21 14:50 TSH 1.620 mlU/mL (0.270-4.200) 02/01/21 14:50 Free T4 1.14 ng/dL (0.76-1.46) 02/01/21 14:50 HCG, Qual Negative (Negative) 02/01/21 05:56 Urine Opiates Screen Negative 02/01/21 Unknown Urine Methadone Screen Negative 02/01/21 Unknown Ur Barbiturates Screen Negative 02/01/21 Unknown Ur Phencyclidine Scrn Negative 02/01/21 Unknown Ur Amphetamines Screen Negative 02/01/21 Unknown U Benzodiazepines Scrn Negative 02/01/21 Unknown Urine Cocaine Screen Negative 02/01/21 Unknown U Marijuana (THC) Screen Negative 02/01/21 Unknown Drugs of Abuse Note Disclamer 02/01/21 Unknown Coronavirus (PCR) Negative (Negative) 02/02/21 Unknown Spencer/IV: Voiding Method Toilet Active Medications - Current Medications Current Medications: Generic Name Dose Route Start Last Admin Trade Name Freq PRN Reason Stop Dose Admin Acetaminophen 650 mg 02/01/21 10:40 Acetaminophen 325 Mg Tab PO Q6H PRN Pain, Mild (1-3) Aspirin 325 mg 02/02/21 10:00 02/03/21 10:08 Aspirin Ec 325 Mg Tab PO 325 mg QDAY JUAN ANTONIO Administration Atorvastatin Calcium 40 mg 02/01/21 22:00 02/02/21 21:51 Atorvastatin 40 Mg Tab PO 40 mg QHS JUAN ANTONIO Administration Heparin Sodium (Porcine) 5,000 unit 02/01/21 14:00 02/03/21 14:28 Heparin 5,000 Unit/1 Ml Vial SUB-Q 5,000 unit Q8HR JUAN ANTONIO Administration Hydralazine HCl 10 mg 02/01/21 10:45 Hydralazine 20 Mg/1 Ml Inj IV Q6H PRN SBP >/=160; DBP >/=100 Sodium Chloride 1,000 mls @ 50 mls/hr 02/01/21 15:00 02/03/21 07:16 Nacl 0.9% 1000 Ml IV 50 mls/hr DIRECT JUAN ANTONIO Administration Morphine Sulfate 2 mg 02/01/21 10:40 Morphine 4 Mg/1 Ml Inj IV Q5MIN PRN Chest Pain Nitroglycerin 0.4 mg 02/01/21 10:40 Nitroglycerin 0.4 Mg Tab Subl SL Q5M PRN Chest Pain Pantoprazole Sodium 40 mg 02/02/21 10:00 02/03/21 10:08 Pantoprazole 40 Mg Tab PO 40 mg QDAY JUAN ANTONIO Administration Sodium Chloride 10 ml 02/01/21 10:40 Sodium Chloride 0.9% 10 Ml Flush Syringe IV PRN PRN LINE FLUSH Tramadol HCl 50 mg 02/01/21 10:40 Tramadol 50 Mg Tab PO Q6H PRN Pain, Moderate (4-6) <JESSICA LEMUS - Last Filed: 02/13/21 07:18> Assessment and Plan Assessment and plan: I saw and evaluated the patient. I agree with the findings and the plan of care as documented in the Nurse Practitioner's~note, with the following corrections and additions. Hospitalist Physical - Constitutional Vitals: Temp Pulse Resp BP Pulse Ox 99.0 F 46 L 18 101/55 98 02/05/21 08:17 02/05/21 08:51 02/05/21 08:17 02/05/21 08:17 02/05/21 08:17 HEART Score - HEART Score Troponin: Troponin T < 0.010 ng/mL (0.00-0.029) 02/01/21 14:50 Results - Labs CBC & Chem 7: 02/04/21 04:44 02/04/21 04:44 Labs: Laboratory Last Values WBC 4.5 K/mm3 (4.5-11.0) 02/04/21 04:44 RBC 3.87 M/mm3 (3.65-5.03) 02/04/21 04:44 Hgb 11.2 gm/dl (10.1-14.3) 02/04/21 04:44 Hct 33.3 % (30.3-42.9) 02/04/21 04:44 MCV 86 fl (79-97) 02/04/21 04:44 MCH 29 pg (28-32) 02/04/21 04:44 MCHC 34 % (30-34) 02/04/21 04:44 RDW 14.2 % (13.2-15.2) 02/04/21 04:44 Plt Count 177 K/mm3 (140-440) 02/04/21 04:44 Lymph % (Auto) 22.3 % (13.4-35.0) 02/01/21 14:50 Power % (Auto) 12.2 % (0.0-7.3) H 02/01/21 14:50 Eos % (Auto) 0.6 % (0.0-4.3) 02/01/21 14:50 Baso % (Auto) 0.7 % (0.0-1.8) 02/01/21 14:50 Lymph # (Auto) 0.7 K/mm3 (1.2-5.4) L 02/01/21 14:50 Power # (Auto) 0.4 K/mm3 (0.0-0.8) 02/01/21 14:50 Eos # (Auto) 0.0 K/mm3 (0.0-0.4) 02/01/21 14:50 Baso # (Auto) 0.0 K/mm3 (0.0-0.1) 02/01/21 14:50 Add Manual Diff Complete 02/01/21 05:56 Total Counted 100 02/01/21 05:56 Seg Neutrophils % 64.2 % (40.0-70.0) 02/01/21 14:50 Seg Neuts % (Manual) 51.0 % (40.0-70.0) 02/01/21 05:56 Lymphocytes % (Manual) 30.0 % (13.4-35.0) 02/01/21 05:56 Reactive Lymphs % (Man) 1.0 % 02/01/21 05:56 Monocytes % (Manual) 15.0 % (0.0-7.3) H 02/01/21 05:56 Eosinophils % (Manual) 2.0 % (0.0-4.3) 02/01/21 05:56 Metamyelocytes % 1.0 % 02/01/21 05:56 Nucleated RBC % Not Reportable 02/01/21 05:56 Seg Neutrophils # 2.1 K/mm3 (1.8-7.7) 02/01/21 14:50 Seg Neutrophils # Man 2.1 K/mm3 (1.8-7.7) 02/01/21 05:56 Band Neutrophils # 0.0 K/mm3 02/01/21 05:56 Lymphocytes # (Manual) 1.3 K/mm3 (1.2-5.4) 02/01/21 05:56 Abs React Lymphs (Man) 0.0 K/mm3 02/01/21 05:56 Monocytes # (Manual) 0.6 K/mm3 (0.0-0.8) 02/01/21 05:56 Eosinophils # (Manual) 0.1 K/mm3 (0.0-0.4) 02/01/21 05:56 Basophils # (Manual) 0.0 K/mm3 (0.0-0.1) 02/01/21 05:56 Metamyelocytes # 0.0 K/mm3 02/01/21 05:56 Myelocytes # 0.0 K/mm3 02/01/21 05:56 Promyelocytes # 0.0 K/mm3 02/01/21 05:56 Blast Cells # 0.0 K/mm3 02/01/21 05:56 WBC Morphology Not Reportable 02/01/21 05:56 Hypersegmented Neuts Not Reportable 02/01/21 05:56 Hyposegmented Neuts Not Reportable 02/01/21 05:56 Hypogranular Neuts Not Reportable 02/01/21 05:56 Smudge Cells Not Reportable 02/01/21 05:56 Toxic Granulation Not Reportable 02/01/21 05:56 Toxic Vacuolation Not Reportable 02/01/21 05:56 Dohle Bodies Not Reportable 02/01/21 05:56 Pelger-Huet Anomaly Not Reportable 02/01/21 05:56 Andrea Rods Not Reportable 02/01/21 05:56 Platelet Estimate Consistent w auto 02/01/21 05:56 Clumped Platelets Not Reportable 02/01/21 05:56 Plt Clumps, EDTA Not Reportable 02/01/21 05:56 Large Platelets Not Reportable 02/01/21 05:56 Giant Platelets Few 02/01/21 05:56 Platelet Satelliting Not Reportable 02/01/21 05:56 Plt Morphology Comment Not Reportable 02/01/21 05:56 RBC Morphology Normal 02/01/21 05:56 Dimorphic RBCs Not Reportable 02/01/21 05:56 Polychromasia Not Reportable 02/01/21 05:56 Hypochromasia Not Reportable 02/01/21 05:56 Poikilocytosis Not Reportable 02/01/21 05:56 Anisocytosis Not Reportable 02/01/21 05:56 Microcytosis Not Reportable 02/01/21 05:56 Macrocytosis Not Reportable 02/01/21 05:56 Spherocytes Not Reportable 02/01/21 05:56 Pappenheimer Bodies Not Reportable 02/01/21 05:56 Sickle Cells Not Reportable 02/01/21 05:56 Target Cells Not Reportable 02/01/21 05:56 Tear Drop Cells Not Reportable 02/01/21 05:56 Ovalocytes Not Reportable 02/01/21 05:56 Helmet Cells Not Reportable 02/01/21 05:56 [place] Bodies Not Reportable 02/01/21 05:56 [place] Rings Not Reportable 02/01/21 05:56 [place] Cells Not Reportable 02/01/21 05:56 Bite Cells Not Reportable 02/01/21 05:56 Crenated Cell Not Reportable 02/01/21 05:56 Elliptocytes Not Reportable 02/01/21 05:56 Acanthocytes (Spur) Not Reportable 02/01/21 05:56 Rouleaux Not Reportable 02/01/21 05:56 Hemoglobin C Crystals Not Reportable 02/01/21 05:56 Schistocytes Not Reportable 02/01/21 05:56 Malaria parasites Not Reportable 02/01/21 05:56 Kevin Bodies Not Reportable 02/01/21 05:56 Hem Pathologist Commnt No 02/01/21 05:56 PT 14.2 Sec. (12.2-14.9) 02/04/21 04:44 INR 1.04 (0.87-1.13) 02/04/21 04:44 Sodium 137 mmol/L (137-145) 02/04/21 04:44 Potassium 4.1 mmol/L (3.6-5.0) 02/04/21 04:44 Chloride 104.1 mmol/L (98-107) 02/04/21 04:44 Carbon Dioxide 24 mmol/L (22-30) 02/04/21 04:44 Anion Gap 13 mmol/L 02/04/21 04:44 BUN 13 mg/dL (7-17) 02/04/21 04:44 Creatinine 0.6 mg/dL (0.6-1.2) 02/04/21 04:44 Estimated GFR > 60 ml/min 02/04/21 04:44 BUN/Creatinine Ratio 22 % 02/04/21 04:44 Glucose 102 mg/dL (65-100) H 02/04/21 04:44 Calcium 8.5 mg/dL (8.4-10.2) 02/04/21 04:44 Phosphorus 3.40 mg/dL (2.5-4.5) 02/01/21 05:56 Magnesium 1.70 mg/dL (1.7-2.3) 02/04/21 04:44 Troponin T < 0.010 ng/mL (0.00-0.029) 02/01/21 14:50 TSH 1.620 mlU/mL (0.270-4.200) 02/01/21 14:50 Free T4 1.14 ng/dL (0.76-1.46) 02/01/21 14:50 Free T3 Index 3.1 pg/mL (2.3-4.2) 02/01/21 14:50 HCG, Qual Negative (Negative) 02/01/21 05:56 Urine Opiates Screen Negative 02/01/21 Unknown Urine Methadone Screen Negative 02/01/21 Unknown Ur Barbiturates Screen Negative 02/01/21 Unknown Ur Phencyclidine Scrn Negative 02/01/21 Unknown Ur Amphetamines Screen Negative 02/01/21 Unknown U Benzodiazepines Scrn Negative 02/01/21 Unknown Urine Cocaine Screen Negative 02/01/21 Unknown U Marijuana (THC) Screen Negative 02/01/21 Unknown Drugs of Abuse Note Disclamer 02/01/21 Unknown Coronavirus (PCR) Negative (Negative) 02/02/21 Unknown Spencer/IV: Voiding Method Toilet
[2021-02-04] MEDS: SODIUM CHLORIDE 0.9% 1000 ML 1,000 ML IV SCH ×3 (04:59→18:26)
[2021-02-04] MEDS: HEPARIN 5,000 UNIT/1 ML VIAL SUB-Q SCH ×2 (05:01→22:51)
[2021-02-04 05:17] LABS: Hematocrit 33.3 % (30.3-42.9); Hemoglobin 11.2 gm/dl (10.1-14.3); Mean Corpuscular HGB Conc 34 % (30-34); Mean Corpuscular Volume 86 fl (79-97); Platelet Count 177 K/mm3 (140-440); Red Blood Count 3.87 M/mm3 (3.65-5.03); Red Cell Distribution Width 14.2 % (13.2-15.2)
[2021-02-04 05:27] LABS: INR 1.04 (0.87-1.13)
[2021-02-04 05:35] LABS: Blood Urea Nitrogen 13 mg/dL (7-17); Calcium 8.5 mg/dL (8.4-10.2); Hemolysis Index 1
[2021-02-04 05:38] LABS: BUN/Creatinine Ratio 22
--- NOTE | 2021-02-04 09:43 | Progress Note ---
Assessment and Plan Sick Sinus Syndrome in setting of hx of Afib s/p ablation * Temporary pacemaker placed through right IJ is functioning normally. Patient continues to be dependent upon pacemaker, primarily in paced rhythm. Continue to monitor on telemetry. * Patient for PPM placement today with Dr Tavares Coppola. DVT prophylaxis * Heparin SQ Anticipate discharge tomorrow pending device interrogation. Cardiology will follow Patient should follow-up with [facility] heart specialists device clinic in 10 days for surgical site check (scheduling pending). #[phone] Patient should follow-up with Dr. Gabriela Coppola, [facility] heart specialists at our [place] location on 02/19/2021 at 1:15 PM. #[phone] This patient was seen in conjunction with Dr Luna who agrees with assessment and plan of care At least 40 minutes was spent on the critical care of this patient - Patient Problems (1) Sick sinus syndrome due to SA node dysfunction Current Visit: Yes Status: Acute (2) History of radiofrequency ablation (RFA) procedure for cardiac arrhythmia Current Visit: Yes Status: Chronic (3) History of atrial fibrillation Current Visit: Yes Status: Chronic (4) DVT prophylaxis Current Visit: Yes Status: Acute Subjective Date of service: 02/04/21 Principal diagnosis: Symptomatic bradycardia s/p PCM; CMOP; Leukopenia; H/O SVT Interval history: Patient resting comfortably in bed. No chest pain or shortness of breath overnight. Telemetry reviewed: Paced rhythm heart rate 50. No events Objective Last Vital Signs Temp 98.8 F 02/04/21 08:00 Pulse 50 L 02/04/21 11:00 Resp 16 02/04/21 11:00 BP 106/58 02/04/21 11:00 Pulse Ox 97 02/04/21 11:00 - Physical Examination General: Appears Well HEENT: Positive: PERRL, Normocephaly, Mucus Membranes Moist Neck: Positive: neck supple, trachea midline Cardiac: Positive: Reg Rate and Rhythm, S1/S2, Other (Paced) Lungs: Positive: Normal Exam, Normal Breath Sounds Neuro: Positive: Grossly Intact Abdomen: Positive: Unremarkable, Soft Skin: Negative: Rash, Wound Musculoskeletal: No Pain Extremities: Present: upper extr. pulses, lower extr. pulses. Absent: edema - Labs and Meds Coagulation 02/04/21 Range/Units 04:44 PT 14.2 (12.2-14.9) Sec. INR 1.04 (0.87-1.13) CBC 02/04/21 Range/Units 04:44 WBC 4.5 (4.5-11.0) K/mm3 RBC 3.87 (3.65-5.03) M/mm3 Hgb 11.2 (10.1-14.3) gm/dl Hct 33.3 (30.3-42.9) % Plt Count 177 (140-440) K/mm3 Comprehensive Metabolic Panel 02/04/21 Range/Units 04:44 Sodium 137 (137-145) mmol/L Potassium 4.1 (3.6-5.0) mmol/L Chloride 104.1 (98-107) mmol/L Carbon Dioxide 24 (22-30) mmol/L BUN 13 (7-17) mg/dL Creatinine 0.6 (0.6-1.2) mg/dL Glucose 102 H (65-100) mg/dL Calcium 8.5 (8.4-10.2) mg/dL - Imaging and Cardiology EKG: report reviewed, image reviewed Cardiac cath: report reviewed ([facility] normal coronary arteries) - Telemetry EKG Rhythm: Paced Pacemaker: ventricular pacing w/capt - Allied health notes Allied health notes reviewed: nursing
[2021-02-04] MEDS ORDERED: SODIUM CHLORIDE IRRI 1000 ML 1,000 ML, .VANCOMYCIN VIAL 1,000 MG IR ONE (11:21)
--- NOTE | 2021-02-04 12:32 | Anesthesia Day of Surgery ---
Anesthesia Day of Surgery - Day of Surgery Patient Examined: Yes Patient H&P Reviewed: Yes Patient is NPO: Yes
--- NOTE | 2021-02-04 12:34 | Anesthesia Consultation ---
Anesthesia Consult and Med Hx Date of service: 02/04/21 - Airway Anesthetic Teeth Evaluation: Good ROM Head & Neck: Adequate Mental/Hyoid Distance: Adequate Mallampati Class: Class II Intubation Access Assessment: Good - Pre-Operative Health Status ASA Pre-Surgery Classification: ASA3 Proposed Anesthetic Plan: MAC (GA if needed) - Pulmonary Hx Respiratory Symptoms: No (Active and exercises several times a week) - Cardiovascular System Hx Cardia Arrhythmia: Yes (SVT, s/p ablation; AF; heart block) Hx Pacemaker: Yes (Temporary) - Central Nervous System Hx Neuromuscular Disorder: Yes (Ollier's disease-mild; JRA-denies steroid use and neck instability) - Gastrointestinal Hx Gastroesophageal Reflux Disease: No - Other Systems Hx Obesity: No
[2021-02-04] MEDS ORDERED: LIDOCAINE (1%) 10 MG/1 ML VIAL 20 ML MDV ONE (12:44)
[2021-02-04] MEDS ORDERED: SODIUM CHLORIDE IRRI 500 ML 500 ML IR ONE (12:44)
[2021-02-04] MEDS ORDERED: BUPIVACAINE/PF (0.5%) 5 MG/1 ML 30 ML VIAL INFILTRATI ONE (12:44)
[2021-02-04] MEDS ORDERED: ceFAZolin/Water 2 GM/20 ML 2 GM/20 ML SYRINGE IV ONE (12:45)
[2021-02-04] MEDS ORDERED: propofoL 200 MG/20 ML VIAL IV ONE ×4 (13:07)
[2021-02-04] MEDS ORDERED: HYDROmorphone 1 MG/1 ML INJ ONE (13:07)
[2021-02-04] MEDS ORDERED: KETAMINE/STERILE WATER 50 MG/ML SYRINGE ONE (13:08)
[2021-02-04] MEDS ORDERED: MIDAZOLAM 2 MG/2 ML INJ ONE (13:09)
--- NOTE | 2021-02-04 14:51 | Progress Note ---
Assessment and Plan Symptomatic bradycardia s/p PCM insertion. Cardiomyopathy Leukopenia H/O supraventricular tachycardia - prn supplemental oxygen to keep O2 sats > 90% - prn bronchodilators (NALINI) with pulm hygiene per RT - PPM per cardiology - avoid nephrotoxins, renally dose all medications - mobility protocols to prevent pressure ulcers - PT/OT as tolerated - accuchecks with glycemic control per SSI for target blood glucose < 180 mg/dL - tobacco abstinence strongly counseled at the bedside - home oxygen evaluation at discharge - GI & VTE prophylaxis - Flu & pneumovax per protocol - prn analgesia per pain score - continue other care per attending / other consultants .... re-evaluate in am & prn ..... transfer to telemetry ms Subjective Date of service: 02/04/21 Principal diagnosis: Symptomatic bradycardia s/p PCM; CMOP; Leukopenia; H/O SVT Interval history: Patient is seen today for: Symptomatic bradycardia s/p PCM insertion; Cardiomyopathy; Leukopenia; H/O supraventricular tachycardia Seen and examined at bedside; 24hour events reviewed; nursing and respiratory care staff consulted; no adverse overnight events reported to me; resting peacefully in bed; for PPM placement today Objective Vital Signs - 12hr 02/04/21 02/04/21 02/04/21 03:00 03:06 04:00 Temperature 98.4 F 98.4 F Pulse Rate 50 L 50 L Pulse Rate [ From Monitor] Respiratory 13 9 L Rate Blood Pressure 94/49 94/49 O2 Sat by Pulse 93 96 Oximetry 02/04/21 02/04/21 02/04/21 05:00 06:00 07:00 Temperature Pulse Rate 50 L 50 L 50 L Pulse Rate [ From Monitor] Respiratory 12 11 L 11 L Rate Blood Pressure 90/39 84/32 84/32 O2 Sat by Pulse 95 95 97 Oximetry 02/04/21 02/04/21 02/04/21 08:00 09:00 10:00 Temperature 98.8 F Pulse Rate 50 L 50 L 56 L Pulse Rate [ 50 L From Monitor] Respiratory 10 L 12 13 Rate Blood Pressure 96/52 104/58 104/58 O2 Sat by Pulse 96 97 98 Oximetry 02/04/21 11:00 Temperature Pulse Rate 50 L Pulse Rate [ From Monitor] Respiratory 16 Rate Blood Pressure 106/58 O2 Sat by Pulse 97 Oximetry Constitutional: no acute distress Eyes: non-icteric ENT: oropharynx moist Neck: supple, no lymphadenopathy, no JVD Effort: normal Ascultation: Bilateral: clear Percussion: Bilateral: not dull Cardiovascular: regular rate and rhythm, other (paced) Gastrointestinal: normoactive bowel sounds, soft, non-tender, non-distended Integumentary: normal Extremities: no cyanosis, no edema, pink and warm, pulses normal Neurologic: normal mental status, non-focal exam, pupils equal and round, motor strength normal and Psychiatric: mood appropriate, affect normal CBC and BMP: 02/04/21 04:44 02/04/21 04:44 ABG, PT/INR, D-dimer: PT/INR, D-dimer PT 14.2 Sec. (12.2-14.9) 02/04/21 04:44 INR 1.04 (0.87-1.13) 02/04/21 04:44 Abnormal lab findings: Abnormal Labs 02/01/21 02/01/21 02/04/21 05:56 14:50 04:44 WBC 4.2 L 3.2 L [place] % (Auto) 12.2 H Lymph # (Auto) 0.7 L Monocytes % (Manual) 15.0 H Glucose 102 H Allied health notes reviewed: nursing
[2021-02-04] MEDS ORDERED: .VANCOMYCIN VIAL 1,000 MG in SODIUM CHLORIDE IRRI 1000 ML 1,000 ML IRRIGATION ONE (15:33)
--- NOTE | 2021-02-04 16:23 | Progress Note ---
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 Sick sinus syndrome -History of SVT/atrial fibrillation s/p ablation in 2016 in [place] -S/p temporary pacemaker placement through right IJ -Cardiology consulted, appreciate recommendation -02/01 TSH 1. 6, free T4 1.14, T3 pending, troponin less than 0.010 -EP consulted per cardiology -Planned PPM on 02/04 -Aspirin, Lipitor, as needed Nitrostat -Per cardiology: Anticipate discharge tomorrow pending device interrogation. Patient should follow-up with [facility] heart specialists device clinic in 10 days for surgical site check (scheduling pending). #[phone] Patient should follow-up with Dr. Gabriela Coppola, [facility] heart specialists at our [place] location on 02/19/2021 at 1:15 PM. #[id number] Leukopenia, resolved -Trend CBC -Neutropenic precautions when appropriate hx of Rheumatoid arthritis -No home medications reported per patient or father at bedside hx of Olliers disease -No home medications GI/DVT prophylaxis: Protonix, heparin subcu, SCDs to bilateral lower extremities while in bed Disposition: Transfer to floor post PPM placement Lines: Right IJ temporary pacemaker (to be replaced with PPM 02/04) , PIV The high probability of a clinically significant, sudden or life threatening deterioration of the [cardio] system(s) required my full and direct attention, intervention and personal management. The aggregate critical care time was [35] minutes. 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 Patient was admitted to the hospitalist service with consults to cardiology and [facility]. 02/02: Patient remains on temporal venous pacemaker due to sinus node dysfunction with pauses noted. She has a known hx of Atrial fibrillation but not on any anticoagulation at this time. Will continue ICU care as patient will benefity from Pacemaker placement planned for the am. Etiology still at question. 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 02/03: At the time of examination patient states that she has not had any chest pain or acute distress. Temporary pacemaker in place. No acute events reported overnight. Updated father and patient at bedside today 02/04: Patient was admitted with chest pain, nausea/vomiting or dizziness. Patient is scheduled for PPM with EP today. Per cardiology patient is anticipated for discharge tomorrow. No acute events reported overnight. Patient has been n.p.o. after midnight for procedure. Objective - Constitutional Vitals: Vital Signs - 12hr 02/04/21 02/04/21 02/04/21 05:00 06:00 07:00 Temperature Pulse Rate 50 L 50 L 50 L Pulse Rate [ From Monitor] Respiratory 12 11 L 11 L Rate Blood Pressure 90/39 84/32 84/32 O2 Sat by Pulse 95 95 97 Oximetry 02/04/21 02/04/21 02/04/21 08:00 09:00 10:00 Temperature 98.8 F Pulse Rate 50 L 50 L 56 L Pulse Rate [ 50 L From Monitor] Respiratory 10 L 12 13 Rate Blood Pressure 96/52 104/58 104/58 O2 Sat by Pulse 96 97 98 Oximetry 02/04/21 11:00 Temperature Pulse Rate 50 L Pulse Rate [ From Monitor] Respiratory 16 Rate Blood Pressure 106/58 O2 Sat by Pulse 97 Oximetry General appearance: Present: no acute distress - EENT Eyes: PERRL, EOM intact ENT: hearing intact, clear oral mucosa, dentition normal - Neck Neck: normal ROM - Respiratory Respiratory effort: normal Respiratory: bilateral: CTA - Cardiovascular Rhythm: regular Heart Sounds: Present: S1 & S2. Absent: systolic murmur, diastolic murmur Extremities: no ischemia, pulses intact, pulses symmetrical, No edema, normal temperature, normal color - Gastrointestinal General gastrointestinal: Present: soft, non-tender, non-distended, normal bowel sounds - Integumentary Integumentary: clear, warm, dry - Musculoskeletal Musculoskeletal: strength equal bilaterally - Neurologic Neurologic: CNII-XII intact, moves all extremities - Psychiatric Psychiatric: appropriate mood/affect, cooperative - Allied health notes Allied health notes reviewed: nursing, social work - Labs CBC & Chem 7: 02/04/21 04:44 02/04/21 04:44 Labs: Abnormal lab results 02/04/21 Range/Units 04:44 Glucose 102 H (65-100) mg/dL HEART Score - HEART Score Troponin: Troponin T < 0.010 ng/mL (0.00-0.029) 02/01/21 14:50 <TIFFANY BEE - Last Filed: 02/05/21 13:35> Assessment and Plan Agree with assessment and plan as outlined by nurse practitioner above, personally examined the patient, patient had pacemaker placement tomorrow. After which she should be stable for discharge per cardiology recommendations. Objective - Constitutional Vitals: Vital Signs - 12hr 02/05/21 02/05/21 02/05/21 04:36 08:17 08:51 Temperature 98.8 F 99.0 F Pulse Rate 46 L 47 L 46 L Respiratory 18 18 Rate Blood Pressure 93/46 101/55 O2 Sat by Pulse 95 98 Oximetry - Labs CBC & Chem 7: 02/04/21 04:44 02/04/21 04:44 HEART Score - HEART Score Troponin: Troponin T < 0.010 ng/mL (0.00-0.029) 02/01/21 14:50
[2021-02-04] MEDS ORDERED: HYDROcodone/ACETAMINOPHEN 5-325 MG TAB PO PRN (16:30)
[2021-02-04] MEDS ORDERED: ONDANSETRON 4 MG/2 ML INJ ONE (17:09)
[2021-02-04] MEDS ORDERED: ONDANSETRON 4 MG/2 ML INJ IV ONE ×2 (17:13→19:30)
--- NOTE | 2021-02-04 17:17 | Post Anesthesia Evaluation ---
- Post Anesthesia Evaluation Patient Participated: Yes Airway Patent: Yes Stable Respiratory Function: Yes Nausea/Vomiting: No Temp > 96.8F: Yes Pain Manageable: Yes Adequeate Hydration: Yes Anesthesia Complications: No Block Receding Appropriately: Not Applicable Patient on Ventilator: No
[2021-02-04] MEDS ORDERED: SODIUM CHLORIDE 0.9% 500 ML 500 ML ONE (17:25)
[2021-02-04] MEDS ORDERED: diphenhydrAMINE 50 MG/ML VIAL IV ONE (17:57)
[2021-02-04] MEDS ORDERED: GLYCOPYRROLATE 0.4 MG/2 ML INJ ONE (18:05)
[2021-02-04] MEDS ORDERED: GLYCOPYRROLATE 0.4 MG/2 ML INJ IV ONE (18:12)
--- NOTE | 2021-02-04 20:34 | XRay Report ---
CHEST 1 VIEW INDICATION / CLINICAL INFORMATION: Pacemaker Postop. COMPARISON: 02/01/2021 FINDINGS: SUPPORT DEVICES: Sided pacemaker HEART / MEDIASTINUM: No significant abnormality. LUNGS / PLEURA: No significant pulmonary or pleural abnormality. No pneumothorax. ADDITIONAL FINDINGS: No significant additional findings. IMPRESSION: A left-sided pacemaker has been placed with the leads superimposed over the expected position of the right ventricle. No evidence of a left-sided pneumothorax Signer Name: Gallo Berumen MD FACR Signed: 02/04/2021 8:30 PM Workstation Name: [id number]
[2021-02-04] MEDS ORDERED: ceFAZolin/NS 1 GM/50 ML 1 GM/50 ML BAG IV SCH (22:00)
[2021-02-04] MEDS: PANTOPRAZOLE 40 MG TAB PO SCH (22:51)
[2021-02-05] MEDS: HEPARIN 5,000 UNIT/1 ML VIAL SUB-Q SCH ×2 (07:21→07:23)
[2021-02-05] MEDS ORDERED: ceFAZolin/NS 1 GM/50 ML 1 GM/50 ML BAG IV SCH (07:45)
[2021-02-05] MEDS ORDERED: HYDROcodone/ACETAMINOPHEN 5-325 MG TAB ONE (08:40)
[2021-02-05 08:52] VITALS: BP 101/55
--- NOTE | 2021-02-05 09:22 | Progress Note ---
Assessment and Plan PPM in situ * S/p PPM placement. CXR reviewed: No pneumothorax. Device interrogation shows normal function. Pressure dressing is removed. Telfa Tegaderm is in place. Instructions have been reviewed with the patient DVT prophylaxis * Heparin SQ Patient is currently stable cardiac status. Patient may discharge from cardiology standpoint. Patient should follow-up with [facility] heart specialists device clinic at our [place] location on 02/14/2021 at 11:30 AM. #[phone] Patient should follow-up with Dr. Gabriela Coppola, [facility] heart specialists at our [place] location on 02/19/2021 at 1:15 PM. #[phone] This patient was seen in conjunction with Dr Luna who agrees with assessment and plan of care - Patient Problems (1) Cardiac pacemaker in situ Current Visit: Yes Status: Acute (2) Sick sinus syndrome due to SA node dysfunction Current Visit: Yes Status: Chronic (3) History of radiofrequency ablation (RFA) procedure for cardiac arrhythmia Current Visit: Yes Status: Chronic (4) History of atrial fibrillation Current Visit: Yes Status: Chronic (5) DVT prophylaxis Current Visit: Yes Status: Acute Subjective Date of service: 02/05/21 Principal diagnosis: Symptomatic bradycardia s/p PCM; CMOP; Leukopenia; H/O SVT Interval history: Patient resting comfortably in bed. No shortness of breath or chest pain overnight, surgical site is tender. Telemetry reviewed: Paced rhythm heart rate 52. No events Objective Last Vital Signs Temp 99.0 F 02/05/21 08:17 Pulse 46 L 02/05/21 08:51 Resp 18 02/05/21 08:17 BP 101/55 02/05/21 08:17 Pulse Ox 98 02/05/21 08:17 - Physical Examination General: Appears Well HEENT: Positive: PERRL, Normocephaly, Mucus Membranes Moist Neck: Positive: neck supple, trachea midline Cardiac: Positive: Reg Rate and Rhythm, S1/S2, Other (Paced) Lungs: Positive: Normal Exam, Normal Breath Sounds Neuro: Positive: Grossly Intact Abdomen: Positive: Unremarkable, Soft Skin: Negative: Rash, Wound Musculoskeletal: No Pain Extremities: Present: upper extr. pulses, lower extr. pulses. Absent: edema - Imaging and Cardiology EKG: report reviewed, image reviewed Cardiac cath: report reviewed ([facility] normal coronary arteries) - Telemetry EKG Rhythm: Paced Pacemaker: ventricular pacing w/capt - Allied health notes Allied health notes reviewed: nursing
--- NOTE | 2021-02-05 09:58 | Electrocardiograph Report ---
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
--- NOTE | 2021-02-05 10:00 | Discharge Summary ---
Providers - Providers Date of Admission: 02/03/21 09:14 Date of discharge: 02/05/21 Attending physician: TIFFANY BEE MD 02/01/21 Consult to Cardiac Rehabilitation [CONS] Routine Reason For Exam: Phase I 02/01/21 07:08 Consult to Cardiology [CONS] Routine Consulting Provider: LORRAINE DEL CID Reason For Exam: Arrhythmia, 4+ pause on Holter monitor 02/01/21 15:59 Consult to Physician [CONS] Routine Comment: Consulting Provider: SLIM BERGER Physician Instructions: Reason For Exam: critical care [facility] Reason for admission: Syncope Condition: Good Hospital course: 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 Sick sinus syndrome -History of SVT/atrial fibrillation s/p ablation in 2015 in [place] -S/p temporary pacemaker placement through right IJ -Cardiology consulted, appreciate recommendation -02/01 TSH 1. 6, free T4 1.14, T3 pending, troponin less than 0.010 -EP consulted per cardiology -Planned PPM on 02/04 -Aspirin, Lipitor, as needed Nitrostat Patient should follow-up with [facility] heart specialists device clinic at our [place] location on 02/14/2021 at 11:30 AM. #[id number] Patient should follow-up with Dr. Gabriela Coppola, [facility] heart specialists at our [place] location on 02/19/2021 at 1:15 PM. 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 Patient was admitted to the hospitalist service with consults to cardiology and [facility]. 02/02: Patient remains on temporal venous pacemaker due to sinus node dysfunction with pauses noted. She has a known hx of Atrial fibrillation but not on any anticoagulation at this time. Will continue ICU care as patient will benefity from Pacemaker placement planned for the am. Etiology still at question. 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 02/03: At the time of examination patient states that she has not had any chest pain or acute distress. Temporary pacemaker in place. No acute events reported overnight. Updated father and patient at bedside today 02/04: Patient was admitted with chest pain, nausea/vomiting or dizziness. [place] is scheduled for PPM with EP today. Per cardiology patient is anticipated for discharge tomorrow. No acute events reported overnight. Patient has been n.p.o. after midnight for procedure. 02/05/2021: Patient seen and examined with father at the bedside, no complaints, patient without any chest pain or shortness of breath. Cardiology has cleared the patient for discharge. Will write pain scrapes, patient to follow-up with cardiology as scheduled. Disposition: - TO HOME OR SELFCARE Final Discharge Diagnosis (Prints w/discharge instructions): Sick sinus syndrome. Leukopenia. Rheumatoid arthritis. Olliers disease. s/p permanent pacemaker placement Core Measure Documentation - Palliative Care Palliative Care/ Comfort Measures: Not Applicable - Core Measures Any of the following diagnoses?: none Exam - Physical Exam Narrative exam: General appearance: no acute distress, well-nourished EENT: PERRL, EOM intact, hearing intact, clear oral mucosa Neck: Present: supple, normal ROM Respiratory: bilateral CTA, negative: rales, rhonchi, wheezing Cardiovascular: Surgical scar with pacemaker placement on the left chest, regular rate/rhythm, Normal S1 & S2. No gallop, rub Extremities: no ischemia, No edema, normal temperature, normal color, Full ROM Abdominal: soft, no tenderness, non-distended, normal bowel sounds Integumentary: Present: clear, warm, dry no wounds, no erythema noted Psychiatric: appropriate mood/affect, intact judgment & insight Neurologic: CNII-XII intact, moves all extremities, no sensory or motor abnormalities - Constitutional Vitals: Temp Pulse Resp BP Pulse Ox 99.0 F 46 L 18 101/55 98 02/05/21 08:17 02/05/21 08:51 02/05/21 08:17 02/05/21 08:17 02/05/21 08:17 Plan Activity: no restrictions Diet: regular Wound: per your surgeon's advice Plan of Treatment: Follow-up with [facility] heart specialists device clinic at our [place] location on 02/14/2021 at 11:30 AM. #[id number] Follow-up with Dr. Gabriela Coppola, [facility] heart specialists at our [place] location on 02/19/2021 at 1:15 PM. #[id number] Follow up with: BETHANY ESPINOZA MD [Primary Care Provider] - 3-5 Days Prescriptions: HYDROcodone/APAP 5-325 [[place] 5-325 mg TAB] 1 each PO Q6H PRN #24 tablet PRN Reason: Pain, Moderate (4-6)
--- NOTE | 2021-02-05 14:25 | Electrocardiograph Report ---
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
== END 2021-02-05 11:47 | disposition home or self-care (01) | DRG 243 ==
LOC: ED 01:25 → 4A 08:19 → CC1 14:39 → OBSVTOIN 02-03 09:14 → 4A 02-04 19:51
PROVIDERS: ADMIT Hospitalist; ATTEND Family Medicine
PROC: 5A1223Z Performance of Cardiac Pacing, Continuous (ICD-10-PCS; principal; 2021-02-01)
PROC: 0JH606Z Insertion of Pacemaker, Dual Chamber into Chest Subcutaneous Tissue and Fascia, Open Approach (ICD-10-PCS; 2021-02-04)
PROC: 02HK3JZ Insertion of Pacemaker Lead into Right Ventricle, Percutaneous Approach (ICD-10-PCS; 2021-02-04)
PROC: 02H63JZ Insertion of Pacemaker Lead into Right Atrium, Percutaneous Approach (ICD-10-PCS; 2021-02-04)
DX: I49.5 Sick sinus syndrome (principal); I47.1 Supraventricular tachycardia; I49.9 Cardiac arrhythmia, unspecified; I45.5 Other specified heart block; Z20.822 Contact with and (suspected) exposure to COVID-19; I42.9 Cardiomyopathy, unspecified; D72.819 Decreased white blood cell count, unspecified; M06.9 Rheumatoid arthritis, unspecified; I48.91 Unspecified atrial fibrillation; Z88.8 Allergy status to other drugs, medicaments and biological substances; Z88.2 Allergy status to sulfonamides; Z95.0 Presence of cardiac pacemaker; Z79.899 Other long term (current) drug therapy; Z79.891 Long term (current) use of opiate analgesic; Z79.01 Long term (current) use of anticoagulants; Q78.4 Enchondromatosis
CPT/HCPCS: 33207; 33210; 36415; 71045; 80048; 80307; 83735; 84100; 84439; 84443; 84481; 84484; 84703; 85007; 85025; 85027; 85610; 93005; 96374; 96375; 96376; G0378; C1786; C1892; C1894; C1898; J0171; J0461; J0690; J1170; J1200; J1644; J2001; J2250; J2370; J2405; J2704; J3010; J3370; J3490; J7030; J7040; J7050; Q9967; U0003